=== PATIENT | female | born 1955 | race Caucasian/White ===

== ENCOUNTER → 2017-06-26 | Outpatient (CLI) | payer BC ==
--- NOTE | 2017-06-27 05:39 | CT ---
EXAMINATION TYPE: CT chest wo con DATE OF EXAM: 06/26/2017 COMPARISON: Chest CT July 23, 2016. Older CT December 04, 2015. HISTORY: Follow up nodule and shortness of breath. CT DLP: 202.5 mGycm. Automated Exposure Control for Dose Reduction was Utilized. TECHNIQUE: CT scan of the thorax is performed without IV contrast. FINDINGS: LUNGS: A scarlike opacity measuring 7 x 4 mm subpleural level right lower lobe on axial image 44 is n ot significantly changed from December 04, 2015 and presumed postinflammatory in etiology. No new peng picious greater than 6 mm parenchymal nodule or mass is present. There is no pleural effusion or pneu mothorax seen bilaterally. The tracheobronchial tree is patent. MEDIASTINUM: Lack of IV contrast is noted to limit evaluation for mediastinal and especially hilar ad enopathy. There are no definitive greater than 1 cm hilar or mediastinal lymph nodes. No cardiomega ly or pericardial effusion is seen. Coronary artery calcification is redemonstrated in the LAD distri bution which is noted marker for coronary artery disease. OTHER: There is moderate multilevel spurring and disc space narrowing with vacuum disc phenomenon thr oughout the thoracic spine. Focal calcified plaque at right renal artery origin is redemonstrated. IMPRESSION: Stable 7 x 4 mm subpleural scarlike opacity right lower lobe presumed postinflammatory. N o new suspicious nodules or adenopathy. No acute pulmonary process is evident. No significant new fin ding is observed.
== END | disposition home or self-care (01) ==
LOC: RADCTMAIN 19:27
PROVIDERS: ATTEND Internal Medicine Pulmonary Disease
DX: R91.8 Other nonspecific abnormal finding of lung field (principal); R06.02 Shortness of breath; R05 Cough
CPT/HCPCS: 71250

== ENCOUNTER → 2017-07-01 | Outpatient (CLI) | payer BC ==
--- NOTE | 2017-07-03 07:01 | MM ---
Reason for exam: screening (asymptomatic). Last mammogram was performed 1 year and 3 months ago. History: Patient is postmenopausal. Family history of breast cancer in paternal grandmother. Physical Findings: A clinical breast exam by your physician is recommended on an annual basis and results should be correlated with mammographic findings. MG 3D Screening Mammo W/Cad Bilateral CC and MLO view(s) were taken. Prior study comparison: April 03, 2016, bilateral MG screening mammo w CAD. March 08, 2015, bilateral MG screening mammo w CAD. January 26, 2014, bilateral digital screening mammo w/CAD. The breast tissue is heterogeneously dense. This may lower the sensitivity of mammography. Asymmetric breast tissue, left breast stable. There is chronic nodularity in the right breast. There is no discrete abnormality. ASSESSMENT: Benign, BI-RAD 2 RECOMMENDATION: Routine screening mammogram of both breasts in 1 year.
== END | disposition home or self-care (01) ==
LOC: RADMAMWWP 09:07
PROVIDERS: ATTEND Obstetrics & Gynecology
DX: Z12.31 Encounter for screening mammogram for malignant neoplasm of breast (principal); Z80.3 Family history of malignant neoplasm of breast
CPT/HCPCS: 77063; G0202

== ENCOUNTER → 2018-07-14 | Outpatient (CLI) | payer BC ==
--- NOTE | 2018-07-14 13:51 | MM ---
Reason for exam: screening (asymptomatic). Last mammogram was performed 1 year ago. History: Patient is postmenopausal. Family history of breast cancer in paternal grandmother. Physical Findings: A clinical breast exam by your physician is recommended on an annual basis and results should be correlated with mammographic findings. MG 3D Screening Mammo W/Cad Bilateral CC and MLO view(s) were taken. Prior study comparison: July 01, 2017, bilateral MG 3d screening mammo w/cad. April 03, 2016, bilateral MG screening mammo w CAD. The breast tissue is heterogeneously dense. This may lower the sensitivity of mammography. There is chronic nodularity in the right breast. There is no discrete abnormality. ASSESSMENT: Negative, BI-RAD 1 RECOMMENDATION: Routine screening mammogram of both breasts in 1 year.
== END | disposition home or self-care (01) ==
LOC: RADMAMWWP 09:45
PROVIDERS: ATTEND Obstetrics & Gynecology
DX: Z12.31 Encounter for screening mammogram for malignant neoplasm of breast (principal); Z80.3 Family history of malignant neoplasm of breast
CPT/HCPCS: 77063; 77067

== ENCOUNTER 2018-07-25 19:58 | Emergency (ER) | payer BC ==
[2018-07-25] MEDS ORDERED: LORazepam 2 MG/ML INJ IM STA (21:06)
[2018-07-25] MEDS ORDERED: ZIPRASIDONE 20 MG VIAL IM STA (21:13)
--- NOTE | 2018-07-25 21:22 | ED ---
General Adult HPI <Nik Cruz - Last Filed: 07/26/18 09:01> - General Source: patient, EMS, RN notes reviewed Mode of arrival: ambulatory Limitations: physical limitation <Teo Nolasco - Last Filed: 07/26/18 17:14> - General Chief complaint: Alcohol Stated complaint: ETOH Time Seen by Provider: 07/25/18 20:29 - History of Present Illness Initial comments: 62-year-old female presents to the emergency department for a chief complaint of alcohol intoxication. Patient currently a poor historian due to agitation. Patient was brought in by EMS. Apparently according to the EMS patient fell 3 times, once in the bedroom and twice in the kitchen. Patient did not lose consciousness and was apparently screaming at the the whole time. Patient denies drinking but does appear clinically intoxicated. Patient states she has a history of bipolar disorder but recently stopped taking her medications. Patient denies taking blood thinners. Patient denies suicidal or homicidal thoughts. Patient has no other complaints at this time including shortness of breath, chest pain, abdominal pain, nausea or vomiting, headache, or visual changes. (Teo Nolasco) - Related Data Home Medications Medication Instructions Recorded Confirmed ARIPiprazole [Abilify] 2 mg PO DAILY 07/25/18 07/25/18 Naltrexone HCl [Revia] 50 mg PO BID 07/25/18 07/25/18 lamoTRIgine [LaMICtal] 25 mg PO DAILY 07/25/18 07/25/18 Allergies Allergy/AdvReac Type Severity Reaction Status Date / Time celecoxib [From Celebrex] Allergy Unknown Verified 07/25/18 20:23 rifampin Allergy Rash/Hives Verified 07/25/18 20:23 Sulfa (Sulfonamide Allergy Unknown Verified 07/25/18 20:23 Antibiotics) steroids Allergy Skin Uncoded 07/25/18 20:23 Outbreak Review of Systems ROS Other: All systems not noted in ROS Statement are negative. <Nik Cruz - Last Filed: 07/26/18 09:01> ROS Other: All systems not noted in ROS Statement are negative. <Teo Nolasco - Last Filed: 07/26/18 17:14> ROS Statement: Those systems with pertinent positive or pertinent negative responses have been documented in the HPI. Past Medical History Past Medical History: Hypertension Additional Past Medical History / Comment(s): Insomnia History of Any Multi-Drug Resistant Organisms: None Reported Past Surgical History: Joint Replacement Past Psychological History: Bipolar Smoking Status: Never smoker Past Alcohol Use History: Abuse, Daily, Heavy Past Drug Use History: None Reported <Teo Nolasco - Last Filed: 07/26/18 17:14> General Exam Limitations: physical limitation General appearance: anxious, other (aggressive to staff, agitated) Head exam: Present: atraumatic, normocephalic, normal inspection Eye exam: Present: normal appearance, PERRL, EOMI, other (erythema noted below left eye). Absent: scleral icterus, conjunctival injection ENT exam: Present: normal exam, mucous membranes moist Neck exam: Present: normal inspection, full ROM. Absent: tenderness, meningismus, lymphadenopathy Respiratory exam: Present: normal lung sounds bilaterally. Absent: respiratory distress, wheezes, rales, rhonchi, stridor Cardiovascular Exam: Present: regular rate, normal rhythm, normal heart sounds. Absent: systolic murmur, diastolic murmur, rubs, gallop, clicks GI/Abdominal exam: Present: soft, normal bowel sounds. Absent: distended, tenderness, guarding, rebound, rigid Neurological exam: Present: alert, CN II-XII intact Psychiatric exam: Present: agitated (agitated, aggressive to staff, punching at staff). Absent: homicidal ideation, suicidal ideation <Teo Nolasco P - Last Filed: 07/26/18 17:14> Course <Nik Cruz - Last Filed: 07/26/18 09:01> <Teo Nolasco P - Last Filed: 07/26/18 17:14> Vital Signs 07/25/18 07/25/18 07/26/18 20:13 23:45 04:14 Temperature 98.2 F 98.7 F Pulse Rate 78 89 83 Respiratory 20 15 16 Rate Blood Pressure 172/64 127/76 147/81 O2 Sat by Pulse 98 100 96 Oximetry 07/26/18 07/26/18 06:39 07:30 Temperature 98.8 F Pulse Rate 87 Respiratory 16 18 Rate Blood Pressure 148/96 O2 Sat by Pulse 99 Oximetry - Reevaluation(s) Reevaluation #1: 07/25/18 20:50 Face to face performed after restraints applied. (Teo Nolasco) Medical Decision Making - Lab Data Result diagrams: 07/25/18 21:40 07/25/18 21:40 <Nik Cruz - Last Filed: 07/26/18 09:01> - Lab Data Result diagrams: 07/25/18 21:40 07/25/18 21:40 <Teo Nolasco - Last Filed: 07/26/18 17:14> - Medical Decision Making EPS evaluated the patient and determined the patient could be discharged home ( Nik Cruz) 62-year-old female presents to the emergency department for a chief complaint of alcohol intoxication. Patient is very agitated. She is punching at staff members and is endangering those around her. Patient is also endangering herself at this time. Hard restraints were ordered for this. Patient was also given Ativan and Geodon. Patient was reevaluated multiple times and did eventually calm down. Restraints were removed. On reevaluation she is currently sleeping. On exam patient has erythema noted below the left eye as well as abrasion to the chin. Patient is unable to explain how the trauma occurred but apparently she did fall 3 times at home. CAT scan of the brain was ordered. CT is negative of the brain and cervical spine for any fractures or intracranial hemorrhage. Patient currently resting comfortably pending EPS evaluation (Teo Nolasco) - Lab Data Lab Results 07/25/18 07/25/18 07/26/18 Range/Units 21:40 21:40 04:45 WBC 9.0 (3.8-10.6) k/uL RBC 4.46 (3.80-5.40) m/uL Hgb 14.2 (11.4-16.0) gm/dL Hct 41.3 (34.0-46.0) % MCV 92.6 (80.0-100.0) fL MCH 31.9 (25.0-35.0) pg MCHC 34.5 (31.0-37.0) g/dL RDW 13.2 (11.5-15.5) % Plt Count 272 (150-450) k/uL Neutrophils % 62 % Lymphocytes % 32 % Monocytes % 4 % Eosinophils % 1 % Basophils % 1 % Neutrophils # 5.5 (1.3-7.7) k/uL Lymphocytes # 2.9 (1.0-4.8) k/uL Monocytes # 0.3 (0-1.0) k/uL Eosinophils # 0.1 (0-0.7) k/uL Basophils # 0.0 (0-0.2) k/uL Sodium 145 (137-145) mmol/L Potassium 4.2 (3.5-5.1) mmol/L Chloride 109 H (98-107) mmol/L Carbon Dioxide 25 (22-30) mmol/L Anion Gap 11 mmol/L BUN 17 (7-17) mg/dL Creatinine 0.77 (0.52-1.04) mg/dL Est GFR (CKD-EPI)AfAm >90 (>60 ml/min/1.73 sqM) Est GFR (CKD-EPI)NonAf 84 (>60 ml/min/1.73 sqM) Glucose 92 (74-99) mg/dL Calcium 9.4 (8.4-10.2) mg/dL Magnesium 2.3 (1.6-2.3) mg/dL Total Bilirubin 0.5 (0.2-1.3) mg/dL AST 33 (14-36) U/L ALT 22 (9-52) U/L Alkaline Phosphatase 83 (38-126) U/L Total Protein 7.2 (6.3-8.2) g/dL Albumin 4.3 (3.5-5.0) g/dL Urine Opiates Screen Not Detected (NotDetected) Ur Oxycodone Screen Not Detected (NotDetected) Urine Methadone Screen Not Detected (NotDetected) Ur Propoxyphene Screen Not Detected (NotDetected) Ur Barbiturates Screen Not Detected (NotDetected) U Tricyclic Antidepress Not Detected (NotDetected) Ur Phencyclidine Scrn Not Detected (NotDetected) Ur Amphetamines Screen Not Detected (NotDetected) U Methamphetamines Scrn Not Detected (NotDetected) U Benzodiazepines Scrn Detected H (NotDetected) Urine Cocaine Screen Not Detected (NotDetected) U Marijuana (THC) Screen Detected H (NotDetected) Serum Alcohol 287 H* mg/dL Disposition Is patient prescribed a controlled substance at d/c from ED?: No Time of Disposition: 09:02 <Nik Cruz - Last Filed: 07/26/18 09:01> Is patient prescribed a controlled substance at d/c from ED?: No <Teo Nolasco - Last Filed: 07/26/18 17:14> Clinical Impression: Alcoholic intoxication, Situational depression Disposition: HOME SELF-CARE Instructions: Depression (ED), Alcohol Intoxication (ED) Referrals: Syd Barnes MD [Primary Care Provider] - 1-2 days
[2018-07-25 21:57] LABS: Basophils % (A) 1 %; Eosinophils # (A) 0.1 k/uL (0-0.7); Eosinophils % (A) 1 %; HCT 41.3 % (34.0-46.0); HGB 14.2 gm/dL (11.4-16.0); Lymphocytes # (A) 2.9 k/uL (1.0-4.8); Lymphocytes % (A) 32 %; MCH 31.9 pg (25.0-35.0); MCHC 34.5 g/dL (31.0-37.0); MCV 92.6 fL (80.0-100.0); Mean Platelet Volume 6.5; Monocytes # (A) 0.3 k/uL (0-1.0); Monocytes % (A) 4 %; Neutrophils # (A) 5.5 k/uL (1.3-7.7); Neutrophils % (A) 62 %; Platelet Count 272 k/uL (150-450); RBC 4.46 m/uL (3.80-5.40); RDW 13.2 % (11.5-15.5)
[2018-07-25 22:19] LABS: ALT 22 U/L (9-52); AST 33 U/L (14-36); Albumin 4.3 g/dL (3.5-5.0); Alkaline Phosphatase 83 U/L (38-126); Anion Gap 11 mmol/L; Blood Urea Nitrogen 17 mg/dL (7-17); Calcium 9.4 mg/dL (8.4-10.2); Carbon Dioxide 25 mmol/L (22-30); Chloride 109 mmol/L (98-107); Glucose 92 mg/dL (74-99); Magnesium 2.3 mg/dL (1.6-2.3); Potassium 4.2 mmol/L (3.5-5.1); Sodium 145 mmol/L (137-145); Total Bilirubin 0.5 mg/dL (0.2-1.3); Total Protein 7.2 g/dL (6.3-8.2)
[2018-07-25 22:38] LABS: Alcohol 287 mg/dL
--- NOTE | 2018-07-26 00:34 | CT ---
EXAMINATION TYPE: CT brain dav castillo DATE OF EXAM: 07/26/2018 COMPARISON: 12/04/2015 HISTORY: AMS CT DLP: 1511.10 mGycm Automated exposure control for dose reduction was used. TECHNIQUE: CT scan of the head and cervical spine are performed without contrast. FINDINGS: Ventricles of normal size. There is no mass effect nor midline shift. There is no sign of intracranial hemorrhage. The calvarium is intact. Cervical vertebra have normal alignment. There is narrowing of disc spaces from C2 to C7 with spurrin g of the endplates. Posterior elements are intact. Skull base is intact. There is no evidence of cerv ical spine fracture. IMPRESSION: Negative CT scan of the brain. Spondylotic changes at multiple levels in the cervical spine. No fracture. No sign of any significant spinal stenosis.
[2018-07-26 05:25] LABS: Amphetamine Screen,Urine Not Detected (NotDetected); Benzodiazepines Screen,Urine Detected (NotDetected); Cocaine Screen,Urine Not Detected (NotDetected); Opiate Screen,Urine Not Detected (NotDetected); Phencyclidine Screen,Urine Not Detected (NotDetected)
[2018-07-26 05:26] LABS: Barbiturate Screen,Urine Not Detected (NotDetected); Methadone Screen, Urine Not Detected (NotDetected); Oxycodone Screen, Urine Not Detected (NotDetected); Tricyclic Antidepressant,Urine Not Detected (NotDetected); Urn Cannabinoid Scrn Detected (NotDetected)
[2018-07-26] MEDS ORDERED: DIPH,PERTUS(ACELL)TETVAC-LF 0.5 ML VIAL IM ONE (06:21)
[2018-07-26 06:40] VITALS: BP 148/96; PULSE 87; TEMP 98.8
[2018-07-26 07:50] VITALS: RESP 18
== END 2018-07-26 09:05 | disposition home or self-care (01) ==
LOC: EC 19:58
DX: F43.21 Adjustment disorder with depressed mood (principal); F10.129 Alcohol abuse with intoxication, unspecified; S00.81XA Abrasion of other part of head, initial encounter; L53.9 Erythematous condition, unspecified; R45.1 Restlessness and agitation; F31.9 Bipolar disorder, unspecified; Z88.1 Allergy status to other antibiotic agents; Z88.2 Allergy status to sulfonamides; Z88.6 Allergy status to analgesic agent; Z88.8 Allergy status to other drugs, medicaments and biological substances; Z79.899 Other long term (current) drug therapy; Z23 Encounter for immunization; W19.XXXA Unspecified fall, initial encounter; Y92.000 Kitchen of unspecified non-institutional (private) residence as the place of occurrence of the external cause; Y92.003 Bedroom of unspecified non-institutional (private) residence as the place of occurrence of the external cause
CPT/HCPCS: 82075; 36415; 80053; 83735; 85025; 80306; 80320; 72125; 70450; 90715; 99285; 96372 ×2; 90471; J2060; J3486

== ENCOUNTER → 2019-09-18 | Outpatient (CLI) | payer BC ==
--- NOTE | 2019-09-18 09:23 | MM ---
Reason for exam: screening (asymptomatic). Last mammogram was performed 1 year and 2 months ago. History: Patient is postmenopausal. Family history of breast cancer in paternal grandmother. Took hormonal contraceptives for 6 months. Physical Findings: A clinical breast exam by your physician is recommended on an annual basis and results should be correlated with mammographic findings. MG 3D Screening Mammo W/Cad Bilateral CC and MLO view(s) were taken. Prior study comparison: July 14, 2018, bilateral MG 3d screening mammo w/cad. July 01, 2017, bilateral MG 3d screening mammo w/cad. The breast tissue is heterogeneously dense. This may lower the sensitivity of mammography. There is chronic nodularity in the right breast. There is no discrete abnormality. ASSESSMENT: Negative, BI-RAD 1 RECOMMENDATION: Routine screening mammogram of both breasts in 1 year.
== END | disposition home or self-care (01) ==
LOC: RADMAMWWP 08:10
PROVIDERS: ATTEND Obstetrics & Gynecology
DX: Z12.31 Encounter for screening mammogram for malignant neoplasm of breast (principal); Z80.3 Family history of malignant neoplasm of breast
CPT/HCPCS: 77063; 77067

== ENCOUNTER 2020-04-25 09:51 | Observation (INO) | payer BC ==
[2020-04-25] MEDS ORDERED: NITROGLYCERIN OINT 1 INCH/GM PACKET TOPICAL STA (10:25)
[2020-04-25] MEDS ORDERED: ASPIRIN 81 MG PO STA (10:25)
--- NOTE | 2020-04-25 10:34 | ED ---
General Adult HPI - General Chief complaint: Chest Pain Stated complaint: High BP Time Seen by Provider: 04/25/20 09:55 Source: patient, RN notes reviewed, old records reviewed Mode of arrival: ambulatory Limitations: no limitations - History of Present Illness Initial comments: This is a 64-year-old female presents to the emergency department complaining of chest pain for one week. Patient states the pain is constant. Patient states if she lifts her arm up the pain does get a little worse. Patient denies any difficulty breathing shortest breath per patient denies any exertion making the pain worse. Patient states she is quite active so she has done quite a bit of exertion and it does not hurt worse. Patient denies any nausea vomiting. Eva mcdonald denies any recent fever chills or cough per patient states she used to be a smoker but quit leg 5 years ago. Patient denies any swelling to her legs or calf tenderness. - Related Data Home Medications Medication Instructions Recorded Confirmed ARIPiprazole [Abilify] 1 mg PO HS 07/25/18 04/25/20 Cyanocobalamin [Vitamin B-12] 500 mcg PO DAILY 04/25/20 04/25/20 Famotidine [Pepcid] 20 mg PO BID 04/25/20 04/25/20 Losartan Potassium 100 mg PO DAILY 04/25/20 04/25/20 Venlafaxine HCl ER [Effexor Xr] 75 mg PO DAILY 04/25/20 04/25/20 Vit C/E/Zn/Coppr/Lutein/Zeaxan 1 cap PO DAILY 04/25/20 04/25/20 [Preservision Areds 2 Softgel] traZODone HCL 100 mg PO HS 04/25/20 04/25/20 Allergies Allergy/AdvReac Type Severity Reaction Status Date / Time celecoxib [From Celebrex] Allergy Unknown Verified 04/25/20 11:25 rifampin Allergy Rash/Hives Verified 04/25/20 11:25 Sulfa (Sulfonamide Allergy Unknown Verified 04/25/20 11:25 Antibiotics) steroids Allergy Skin Uncoded 04/25/20 09:59 Outbreak Review of Systems ROS Statement: Those systems with pertinent positive or pertinent negative responses have been documented in the HPI. ROS Other: All systems not noted in ROS Statement are negative. Past Medical History Past Medical History: Hypertension Additional Past Medical History / Comment(s): Insomnia History of Any Multi-Drug Resistant Organisms: None Reported Past Surgical History: Joint Replacement Additional Past Surgical History / Comment(s): left hip replacement Past Psychological History: Bipolar Smoking Status: Former smoker Past Alcohol Use History: Abuse, Daily, Heavy Past Drug Use History: None Reported General Exam - General Exam Comments Initial Comments: GENERAL: Patient is well-developed and well-nourished. Patient is nontoxic and well- hydrated and is in mild distress. ENT: Neck is soft and supple. No significant lymphadenopathy is noted. Oropharynx is clear. Moist mucous membranes. Neck has full range of motion without eliciting any pain. EYES: The sclera were anicteric and conjunctiva were pink and moist. Extraocular movements were intact and pupils were equal round and reactive to light. Eyelids were unremarkable. PULMONARY: Unlabored respirations. Good breath sounds bilaterally. No audible rales rhonchi or wheezing was noted. CARDIOVASCULAR: There is a regular rate and rhythm without any murmurs gallops or rubs. ABDOMEN: Soft and nontender with normal bowel sounds. SKIN: Skin is clear with no lesions or rashes and otherwise unremarkable. NEUROLOGIC: Patient is alert and oriented x3. Cranial nerves II through XII are grossly intact. Motor and sensory are also intact. Normal speech, volume and content. Symmetrical smile. MUSCULOSKELETAL: Normal extremities with adequate strength and full range of motion. LYMPHATICS: No significant lymphadenopathy is noted PSYCHIATRIC: Normal psychiatric evaluation. Limitations: no limitations Course Vital Signs 04/25/20 04/25/20 04/25/20 09:55 11:25 13:00 Temperature 98.3 F Pulse Rate 95 79 75 Respiratory 18 16 16 Rate Blood Pressure 157/99 148/95 140/96 O2 Sat by Pulse 98 100 Oximetry Medical Decision Making - Medical Decision Making EKG shows normal sinus rhythm at 70 bpm LA interval 228 QRS is 94 QT interval 412 QTC is 444. Patient's EKG shows no ST segment elevation or depression. Chest x-ray showed no acute normalities. After the Nitropaste was placed on the patient she stated that was the first time in a week her pain had gone away completely. Because the patient's unstable angina picture I started the patient on heparin. The physician about admitting patient admitted the patient wrote admitting orders I consult cardiology. Continue heparin has been Nitropaste on the floor. I spoke with - Lab Data Result diagrams: 04/25/20 10:17 04/25/20 10:17 Lab Results 04/25/20 04/25/20 04/25/20 Range/Units 10:17 10:17 10:17 WBC 5.6 (3.8-10.6) k/uL RBC 4.35 (3.80-5.40) m/uL Hgb 13.3 (11.4-16.0) gm/dL Hct 42.1 (34.0-46.0) % MCV 96.8 (80.0-100.0) fL MCH 30.6 (25.0-35.0) pg MCHC 31.6 (31.0-37.0) g/dL RDW 12.9 (11.5-15.5) % Plt Count 246 (150-450) k/uL Neutrophils % 61 % Lymphocytes % 27 % Monocytes % 8 % Eosinophils % 1 % Basophils % 1 % Neutrophils # 3.5 (1.3-7.7) k/uL Lymphocytes # 1.5 (1.0-4.8) k/uL Monocytes # 0.4 (0-1.0) k/uL Eosinophils # 0.1 (0-0.7) k/uL Basophils # 0.1 (0-0.2) k/uL PT 9.6 (9.0-12.0) sec INR 0.9 (<1.2) APTT 24.7 (22.0-30.0) sec D-Dimer (<0.60) mg/L FEU Sodium 135 L (137-145) mmol/L Potassium 4.4 (3.5-5.1) mmol/L Chloride 105 (98-107) mmol/L Carbon Dioxide 23 (22-30) mmol/L Anion Gap 7 mmol/L BUN 16 (7-17) mg/dL Creatinine 0.86 (0.52-1.04) mg/dL Est GFR (CKD-EPI)AfAm 84 (>60 ml/min/1.73 sqM) Est GFR (CKD-EPI)NonAf 73 (>60 ml/min/1.73 sqM) Glucose 109 H (74-99) mg/dL Calcium 9.7 (8.4-10.2) mg/dL Magnesium 2.2 (1.6-2.3) mg/dL Total Bilirubin 0.7 (0.2-1.3) mg/dL AST 34 (14-36) U/L ALT 25 (4-34) U/L Alkaline Phosphatase 106 (38-126) U/L Troponin I (0.000-0.034) ng/mL Total Protein 7.0 (6.3-8.2) g/dL Albumin 4.5 (3.5-5.0) g/dL 04/25/20 04/25/20 Range/Units 10:17 10:17 WBC (3.8-10.6) k/uL RBC (3.80-5.40) m/uL Hgb (11.4-16.0) gm/dL Hct (34.0-46.0) % MCV (80.0-100.0) fL MCH (25.0-35.0) pg MCHC (31.0-37.0) g/dL RDW (11.5-15.5) % Plt Count (150-450) k/uL Neutrophils % % Lymphocytes % % Monocytes % % Eosinophils % % Basophils % % Neutrophils # (1.3-7.7) k/uL Lymphocytes # (1.0-4.8) k/uL Monocytes # (0-1.0) k/uL Eosinophils # (0-0.7) k/uL Basophils # (0-0.2) k/uL PT (9.0-12.0) sec INR (<1.2) APTT (22.0-30.0) sec D-Dimer 0.65 H (<0.60) mg/L FEU Sodium (137-145) mmol/L Potassium (3.5-5.1) mmol/L Chloride (98-107) mmol/L Carbon Dioxide (22-30) mmol/L Anion Gap mmol/L BUN (7-17) mg/dL Creatinine (0.52-1.04) mg/dL Est GFR (CKD-EPI)AfAm (>60 ml/min/1.73 sqM) Est GFR (CKD-EPI)NonAf (>60 ml/min/1.73 sqM) Glucose (74-99) mg/dL Calcium (8.4-10.2) mg/dL Magnesium (1.6-2.3) mg/dL Total Bilirubin (0.2-1.3) mg/dL AST (14-36) U/L ALT (4-34) U/L Alkaline Phosphatase (38-126) U/L Troponin I <0.012 (0.000-0.034) ng/mL Total Protein (6.3-8.2) g/dL Albumin (3.5-5.0) g/dL Critical Care Time Critical Care Time: Yes Total Critical Care Time: 35 Disposition Clinical Impression: Unstable angina pectoris Disposition: ADMITTED IP TO THIS HOSP Referrals: Syd Barnes MD [Primary Care Provider] - 1-2 days Time of Disposition: 13:41
[2020-04-25 11:09] LABS: Basophils # (A) 0.1 k/uL (0-0.2); Basophils % (A) 1 %; Eosinophils # (A) 0.1 k/uL (0-0.7); Eosinophils % (A) 1 %; HCT 42.1 % (34.0-46.0); HGB 13.3 gm/dL (11.4-16.0); Lymphocytes # (A) 1.5 k/uL (1.0-4.8); Lymphocytes % (A) 27 %; MCH 30.6 pg (25.0-35.0); MCHC 31.6 g/dL (31.0-37.0); MCV 96.8 fL (80.0-100.0); Mean Platelet Volume 7.5; Monocytes # (A) 0.4 k/uL (0-1.0); Monocytes % (A) 8 %; Neutrophils # (A) 3.5 k/uL (1.3-7.7); Neutrophils % (A) 61 %; Platelet Count 246 k/uL (150-450); RBC 4.35 m/uL (3.80-5.40); RDW 12.9 % (11.5-15.5); WBC 5.6 k/uL (3.8-10.6)
[2020-04-25 11:10] LABS: Albumin 4.5 g/dL (3.5-5.0); Calcium 9.7 mg/dL (8.4-10.2); Magnesium 2.2 mg/dL (1.6-2.3); Potassium 4.4 mmol/L (3.5-5.1); Total Bilirubin 0.7 mg/dL (0.2-1.3)
--- NOTE | 2020-04-25 11:13 | XR ---
EXAMINATION TYPE: XR chest 2V DATE OF EXAM: 04/25/2020 COMPARISON: 11/1415 HISTORY: Shortness of breath TECHNIQUE: Frontal and lateral views of the chest are obtained. FINDINGS: Scattered senescent parenchymal changes noted. Hyperinflation compatible with COPD. No evidence for infiltrate. No evidence for atelectasis. Heart size is stable. Mediastinal structures are stable and grossly unremarkable. No evidence for hilar prominence. Degenerative changes dorsal spine. IMPRESSION: 1. No evidence for acute pulmonary disease.
[2020-04-25 11:19] LABS: INR 0.9 (<1.2); Partial Thromboplastin Time 24.7 sec (22.0-30.0); Prothrombin Time 9.6 sec (9.0-12.0)
--- NOTE | 2020-04-25 13:04 | CT ---
EXAMINATION TYPE: CT chest angio for PE DATE OF EXAM: 04/25/2020 COMPARISON: Chest x-ray 04/25/2020 HISTORY: High blood pressure and elevated d-dimer CT DLP: 248.1 mGycm Automated exposure control for dose reduction was used. CONTRAST: CT Chest for pulmonary embolism performed with with IV Contrast, patient injected with 100 mL of Isov ue 370. FINDINGS: LUNGS: The lungs are grossly clear, there is no concerning parenchymal mass or nodule identified. T here is no pleural effusion or pneumothorax seen. The tracheobronchial tree is patent. MEDIASTINUM: There is satisfactory enhancement of the pulmonary artery and its branches, there is no CT evidence for pulmonary embolism. There are no greater than 1 cm hilar or mediastinal lymph nodes. No pericardial effusion is seen. AORTA: No additional significant abnormality is seen. OTHER: Surgical clips in the upper abdomen along the pancreas suspected. Thoracic spondylosis is pre sent. IMPRESSION: No evident pulmonary embolus.
[2020-04-25] MEDS ORDERED: HEPARIN SODIUM,PORCINE 5,000 UNIT/ML 1 ML VIAL IV ONE (13:40)
[2020-04-25] MEDS ORDERED: HEPARIN SOD,PORK IN 0.45% NACL 25,000 UNIT in 0.45% NACL 1 250ML.BAG IV SCH (13:45)
[2020-04-25] MEDS ORDERED: NITROGLYCERIN SL TABS 0.4 MG TAB SUBLINGUAL PRN (13:49)
[2020-04-25] MEDS: NITROGLYCERIN OINT 1 INCH/GM PACKET TOPICAL SCH (17:00)
[2020-04-25] MEDS ORDERED: DIAZEPAM 5 MG TAB PO PRN (18:13)
[2020-04-25] MEDS ORDERED: ACETAMINOPHEN TAB 325 MG TAB PO PRN (18:24)
[2020-04-25] MEDS ORDERED: traZODone HCL 100 MG TAB PO SCH (21:00)
[2020-04-25] MEDS ORDERED: ARIPiprazole 2 MG TAB PO SCH (21:00)
[2020-04-25] MEDS: FAMOTIDINE 20 MG TAB PO SCH (22:22)
--- NOTE | 2020-04-25 22:54 | P.HPIM ---
History of Present Illness H&P Date: 04/25/20 Chief Complaint: Unstable angina, recurrent chest pain, hypertension and hyp erlipidemia 63-year-old female one of Dr. Barnes's patient with past medical history of hypertension hyperlipidemia who had chronic arthritis and chronic depression who developed to have significant midsternal chest pain on and off for the last few days over a week ago she developed to have significantly elevated blood pressure running over 160 systolic over 100 diastolic on regular basis and developed to have exertional chest pain with worsening symptoms sometime with minimum exertion radiating toward her left arm as a midsternal chest discomfort with numbness in the left arm associated with mild palpitation cold sweat and nausea feeling. Patient symptoms become much worse today ended up coming to the emergency department at [facility] where was seen and evaluated her d-dimer was elevated patient ended up going for CTA came back negative for wrap PE, CK with troponin came back negative EKG did not show any significant change at the time. Patient had respond to nitro paste with significant relief of her chest pain and discomfort with the blood pressure become under better control afterward. Patient was started on heparin drip nitro patch and admitted to the hospital shortly after with the above problem. Review of Systems CONSTITUTIONAL: Well-developed no acute respiratory distress. EYES: No icterus sclerae, no conjunctivitis. EARS, NOSE, MOUTH, THROAT, and FACE: No sore throat, lymphadenopathy, carotid bruits or deformity. RESPIRATORY: Positive chest pain with shortness of breath. CARDIOVASCULAR: Positive chest pain with angina relieved with nitroglycerin possible orthopnea positive palpitation. GASTROINTESTINAL: No Abd pain, Nausea or vomiting, no Diarrhea or constipation, No GI Bleed, no distention or masses. GENITOURINARY: Negative for Hematuria or UTI, no kidney stones. INTEGUMENT/BREAST: Negative for any muscular injury with mild osteoarthritis.. HEMATOLOGIC/LYMPHATIC: Negative for bleed or purpura. MUSCULOSKELTAL: Negative for Myalgia or arthralgia. NEURLOGICAL: No LOC, Sz or syncope, blurred vision dizziness or abnormality.. BEHAVIORAL/PSYCH: Negative. ENDOCRINE: Negative. Past Medical History Past Medical History: Hypertension Additional Past Medical History / Comment(s): Insomnia History of Any Multi-Drug Resistant Organisms: None Reported Past Surgical History: Joint Replacement Additional Past Surgical History / Comment(s): left hip replacement Past Psychological History: Bipolar Smoking Status: Former smoker Past Alcohol Use History: Abuse, Daily, Heavy Past Drug Use History: None Reported Medications and Allergies Home Medications Medication Instructions Recorded Confirmed Type ARIPiprazole [Abilify] 1 mg PO HS 07/25/18 04/25/20 History Cyanocobalamin [Vitamin B-12] 500 mcg PO DAILY 04/25/20 04/25/20 History Diazepam [Valium] 5 mg PO TID PRN 04/25/20 04/25/20 History Famotidine [Pepcid] 20 mg PO BID 04/25/20 04/25/20 History Losartan Potassium 100 mg PO DAILY 04/25/20 04/25/20 History Venlafaxine HCl ER [Effexor Xr] 75 mg PO DAILY 04/25/20 04/25/20 History Vit C/E/Zn/Coppr/Lutein/Zeaxan 1 cap PO DAILY 04/25/20 04/25/20 History [Preservision Areds 2 Softgel] traZODone HCL 100 mg PO HS 04/25/20 04/25/20 History Allergies Allergy/AdvReac Type Severity Reaction Status Date / Time celecoxib [From Celebrex] Allergy Unknown Verified 04/25/20 11:25 rifampin Allergy Rash/Hives Verified 04/25/20 11:25 Sulfa (Sulfonamide Allergy Unknown Verified 04/25/20 11:25 Antibiotics) steroids Allergy Skin Uncoded 04/25/20 09:59 Outbreak Physical Exam Vitals: Vital Signs Temp Pulse Pulse Resp BP BP Pulse Ox 04/25/20 15:38 78 16 131/97 96 04/25/20 14:27 67 18 134/93 98 04/25/20 14:14 97.8 F 70 14 160/87 99 04/25/20 13:00 75 16 140/96 100 04/25/20 11:25 79 16 148/95 04/25/20 09:55 98.3 F 95 18 157/99 98 Intake and Output 04/25/20 04/25/20 04/25/20 06:59 14:59 22:59 Other: Voiding Method Toilet Weight 65.771 kg General Appearance: Alert, cooperative, no distress, appears stated age. Neck HEENT: Supple, no lymphadenopathy, no thyroid enlargement, no carotid bruits. Lungs: Clear to auscultation without crackles or wheezes no rhonchi, no deformity. Chest Wall: Chest wall normal expansion with deep inspiration no tenderness and no deformity was found on exam, no costochondral pain or discomfort. Heart: Regular rate and rhythm, S1, S2 normal, no murmur, rub or gallop. Back: Symmetric, no curvature, ROM normal, no CVA tenderness. Abdomen: Soft, non-tender, bowel sounds active all four quadrants, no masses, no organomegaly. Extremities: Extremities normal, atraumatic, no cyanosis or edema. Pulses: 2+ and symmetric. Skin: Skin color, texture, tugor normal, no rashes or lesions. Neurologic: Alert oriented x3 cranial nerves II through XII intact, no motor deficit, no abnormal balance or gait. Results CBC & Chem 7: 04/25/20 10:17 04/25/20 10:17 Labs: Abnormal Lab Results - Last 24 Hours (Table) 04/25/20 04/25/20 04/25/20 Range/Units 10:17 10:17 20:16 APTT 58.3 H (22.0-30.0) sec D-Dimer 0.65 H (<0.60) mg/L FEU Sodium 135 L (137-145) mmol/L Glucose 109 H (74-99) mg/dL Thrombosis Risk Factor Assmnt - DVT/VTE Prophylaxis DVT/VTE Prophylaxis: Pharmacologic Prophylaxis ordered, Mechanical Prophylaxis ordered - Choose All That Apply Each Risk Factor Represents 2 Points: Age 61-74 years Thrombosis Risk Factor Assessment Total Risk Factor Score: 2 Thrombosis Risk Factor Assessment Level: Low Risk Assessment and Plan Assessment: 1 Unstable angina: Patient was started on heparin drip, nitro patient be hospitalized echocardiogram was order and patient might go for intervention either stress test or heart cath based on the results of her CK with troponin over the next 24 hours. 2 noncontrolled hypertension: Patient has been on losartan 100 mg daily Will add smaller dose of beta scotty if needed patient can be on amlodipine 5 mg twice a day for systolic above 160. 3 hyperlipidemia: On diet control make sure her low 100. 4 chronic bipolar disorders: Patient has been on Effexor, trazodone, Abilify continue medication. 5 chronic insomnia: Continue trazodone. 6 severe GERD: Patient has been on Pepcid 20 mg twice a day. 7 DVT prophylaxis: Continue heparin drip. CODE STATUS: Full code. Admit patient to observation status for 1-2 nights stay
[2020-04-26] MEDS: NITROGLYCERIN OINT 1 INCH/GM PACKET TOPICAL SCH ×2 (04:30→08:11)
[2020-04-26 05:00] VITALS: RESP 16
[2020-04-26 07:23] LABS: Cholesterol 237 mg/dL (<200); Triglycerides 61 mg/dL (<150)
[2020-04-26 07:31] LABS: LDL Cholesterol,Calculated 82 mg/dL (0-99)
[2020-04-26 07:35] LABS: HDL Cholesterol 143 mg/dL (40-60)
[2020-04-26] MEDS: FAMOTIDINE 20 MG TAB PO SCH (08:05)
[2020-04-26] MEDS ORDERED: METOPROLOL SUCCINATE (ER) 25 MG TAB.ER.24H PO SCH (09:00)
[2020-04-26] MEDS ORDERED: ASPIRIN 325 MG TAB PO SCH (09:00)
[2020-04-26] MEDS ORDERED: NON FORMULARY DRUG (Vit C/E/Zn/Coppr/Lutein/Zeaxan [Preservision Areds 2 Softgel] 1 CAP) PO SCH (09:00)
[2020-04-26] MEDS ORDERED: CYANOCOBALAMIN 500 MCG TAB PO SCH (09:00)
[2020-04-26] MEDS ORDERED: VENLAFAXINE HCL ER 75 MG CAP PO SCH (09:00)
[2020-04-26] MEDS ORDERED: LOSARTAN 50 MG TAB PO SCH (09:00)
[2020-04-26] MEDS ORDERED: DOBUTamine DRIP for NUC MED 500 MG in DEXTROSE/WATER 1 250ML.BAG IV ONE (09:20)
--- NOTE | 2020-04-26 10:03 | P.CRDCN ---
History of Present Illness History of present illness: HISTORY OF PRESENTING ILLNESS This is a pleasant 64-year-old female past medical history significant for hypertension, former nicotine dependence and chronic daily alcohol abuse. She follows in the office with Dr. Cummings. We have been asked to see in consultation for chest pain. She is seen and examined sitting up resting comfortably in bed in no acute distress. She states she has been experiencing a discomfort described as an achy sensation in the left precordial region for the previous one week that has been constant. The discomfort does radiate at times down the left arm. She feels as though the radiation is related to when she moves her arm or lifts her shoulder. There is no radiation through to the back, into the neck or the jaw. She denies associated shortness of breath, dizziness, palpitations, nausea, vomiting or diaphoresis. Her discomfort is not worsened are exacerbated by activity or exertion. She states she is quite physically active on a regular basis. In 2016 she underwent a cardiac evaluation prior to having hip surgery. At that time she had a Lexiscan stress test that was negative. A echocardiogram revealing normal LV systolic function. She is scheduled to have a stress test in the office with Dr. Dr. Cummings in July. She is also quite tearful at the time of my exam and states she is struggling with her who has recently been diagnosed with stage IV renal cancer. She has been checking her blood pressure regularly at home and her blood pressure fluctuates from 90/40-130/110. Blood pressure on arrival was 157/99 and 160/87. She has been started on Toprol 25 mg daily per the primary care team. She also mentions that for the last 1 year she has been experiencing pain along with numbness and tingling in her lower extremities. DIAGNOSTICS EKG reveals sinus mechanism heart rate of 70 with no acute ischemic changes. Chest xray negative for an acute cardiopulmonary process. CTA of the chest is negative for pulmonary embolism. The lungs are grossly clear. No abnormalities noted in the aorta. Laboratory reviewed, CBC unremarkable, d-dimer 0.65, cardiac enzymes negative 3, LDL 82, HDL 143, sodium 135, potassium 4.4, creatinine 0.86 and magnesium 2.2. Current cardiac medications include losartan 100 mg daily. REVIEW OF SYSTEMS At the time of my exam: CONSTITUTIONAL: Denies fever or chills. CARDIOVASCULAR: Complains of chest pain. Denies shortness of breath, orthopnea, PND or palpitations. RESPIRATORY: Denies cough. GASTROINTESTINAL: Denies abdominal pain, diarrhea, constipation, nausea or vomiting. MUSCULOSKELETAL: Denies myalgias. NEUROLOGIC: Denies numbness, tingling or weakness. ENDOCRINE: Denies fatigue, weight change, polydipsia or polyurina. GENITOURINARY: Denies burning, hematuria or urgency with micturation. HEMATOLOGIC: Denies history of anemia or bleeding. PHYSICAL EXAMINATION Blood pressure 137/94 heart rate 70 afebrile and maintaining oxygen saturation on room air. CONSTITUTIONAL: No apparent distress. HEENT: Head is normocephalic. Pupils are equal, round. Sclerae anicteric. Mucous membranes of the mouth are moist. No JVD. No carotid bruit. CHEST EXAMINATION: Lungs are clear to auscultation. No chest wall tenderness is noted on palpation or with deep breathing. HEART EXAMINATION: Regular rate and rhythm. S1, S2 heard. No murmurs, gallops or rub. ABDOMEN: Soft, nontender. Positive bowel sounds. EXTREMITIES: 2+ peripheral pulses, no lower extremity edema and no calf tenderness. NEUROLOGIC EXAMINATION: Patient is awake, alert and oriented x3. ASSESSMENT Chest pain, atypical for angina. An acute coronary event has been ruled out. Leg pain and tingling Hypertension Chronic daily alcohol abuse Former nicotine dependence PLAN An acute coronary event has been ruled out with no EKG evidence of ischemia and negative cardiac enzymes. Recommend proceeding with dobutamine stress echocardiogram to assess for stress- induced ischemia. Obtain 2-D echocardiogram and Doppler study to assess cardiac structure and function. Recommend complete alcohol cessation. Discussed further outpatient evaluation with [facility] and possible peripheral angiography to assess lower extremity pain, cramping and tingling given her significant history of tobacco use. If stress test is normal she can be discharged from a cardiac perspective to follow up with Dr. Cummings as an outpatient. Thank you kindly for this consultation. Nurse Practitioner note has been reviewed, I agree with a documented findings and plan of care. Patient was seen and examined. Past Medical History Past Medical History: Hypertension Additional Past Medical History / Comment(s): Insomnia History of Any Multi-Drug Resistant Organisms: None Reported Past Surgical History: Joint Replacement Additional Past Surgical History / Comment(s): left hip replacement Past Psychological History: Bipolar Smoking Status: Former smoker Past Alcohol Use History: Abuse, Daily, Heavy Past Drug Use History: None Reported Medications and Allergies Home Medications Medication Instructions Recorded Confirmed Type ARIPiprazole [Abilify] 1 mg PO HS 07/25/18 04/25/20 History Cyanocobalamin [Vitamin B-12] 500 mcg PO DAILY 04/25/20 04/25/20 History Diazepam [Valium] 5 mg PO TID PRN 04/25/20 04/25/20 History Famotidine [Pepcid] 20 mg PO BID 04/25/20 04/25/20 History Losartan Potassium 100 mg PO DAILY 04/25/20 04/25/20 History Venlafaxine HCl ER [Effexor Xr] 75 mg PO DAILY 04/25/20 04/25/20 History Vit C/E/Zn/Coppr/Lutein/Zeaxan 1 cap PO DAILY 04/25/20 04/25/20 History [Preservision Areds 2 Softgel] traZODone HCL 100 mg PO HS 04/25/20 04/25/20 History Allergies Allergy/AdvReac Type Severity Reaction Status Date / Time celecoxib [From Celebrex] Allergy Unknown Verified 04/25/20 11:25 rifampin Allergy Rash/Hives Verified 04/25/20 11:25 Sulfa (Sulfonamide Allergy Unknown Verified 04/25/20 11:25 Antibiotics) steroids Allergy Skin Uncoded 04/25/20 09:59 Outbreak Physical Exam Vitals: Vital Signs Temp Pulse Pulse Resp BP BP Pulse Ox 04/26/20 08:00 98.1 F 70 16 137/94 97 04/26/20 04:00 97.7 F 77 16 127/87 98 04/26/20 00:10 98 F 79 15 113/66 98 04/25/20 20:00 97.8 F 65 16 136/91 97 04/25/20 15:38 78 16 131/97 96 04/25/20 14:27 67 18 134/93 98 04/25/20 14:14 97.8 F 70 14 160/87 99 04/25/20 13:00 75 16 140/96 100 04/25/20 11:25 79 16 148/95 04/25/20 09:55 98.3 F 95 18 157/99 98 Intake and Output 04/25/20 04/26/20 04/26/20 22:59 06:59 14:59 Other: Voiding Method Toilet # Voids 1 2 Results 04/25/20 10:17 04/25/20 10:17 Cardiac Enzymes 04/25/20 04/25/20 04/25/20 Range/Units 10:17 10:17 14:46 AST 34 (14-36) U/L Troponin I <0.012 <0.012 (0.000-0.034) ng/mL 04/25/20 Range/Units 18:21 AST (14-36) U/L Troponin I <0.012 (0.000-0.034) ng/mL Coagulation 04/25/20 04/25/20 04/26/20 Range/Units 10:17 20:16 06:40 PT 9.6 (9.0-12.0) sec APTT 24.7 58.3 H 49.3 H (22.0-30.0) sec Lipids 04/26/20 Range/Units 06:40 Triglycerides 61 (<150) mg/dL Cholesterol 237 H (<200) mg/dL HDL Cholesterol 143 H (40-60) mg/dL CBC 04/25/20 Range/Units 10:17 WBC 5.6 (3.8-10.6) k/uL RBC 4.35 (3.80-5.40) m/uL Hgb 13.3 (11.4-16.0) gm/dL Hct 42.1 (34.0-46.0) % Plt Count 246 (150-450) k/uL Comprehensive Metabolic Panel 04/25/20 Range/Units 10:17 Sodium 135 L (137-145) mmol/L Potassium 4.4 (3.5-5.1) mmol/L Chloride 105 (98-107) mmol/L Carbon Dioxide 23 (22-30) mmol/L BUN 16 (7-17) mg/dL Creatinine 0.86 (0.52-1.04) mg/dL Glucose 109 H (74-99) mg/dL Calcium 9.7 (8.4-10.2) mg/dL AST 34 (14-36) U/L ALT 25 (4-34) U/L Alkaline Phosphatase 106 (38-126) U/L Total Protein 7.0 (6.3-8.2) g/dL Albumin 4.5 (3.5-5.0) g/dL Current Medications Generic Name Dose Route Start Last Admin Trade Name Frequiana PRN Reason Stop Dose Admin Acetaminophen 650 mg 04/25/20 18:24 04/25/20 18:42 Tylenol Tab PO 650 mg Q6HR PRN Administration Fever and/ or Pain Aripiprazole 1 mg 04/25/20 21:00 04/25/20 22:23 Abilify PO 1 mg HS YAMILETH Administration Aspirin 81 mg 04/27/20 09:00 Aspirin PO DAILY YAMILETH Cyanocobalamin 500 mcg 04/26/20 09:00 04/26/20 08:05 Vitamin B-12 PO 500 mcg DAILY YAMILETH Administration Diazepam 5 mg 04/25/20 18:13 04/25/20 22:24 Valium PO 5 mg TID PRN Administration Anxiety Famotidine 20 mg 04/25/20 21:00 04/26/20 08:05 Pepcid PO 20 mg BID YAMILETH Administration Dobutamine HCl/Dextrose 500 mg 250 mls @ 19.731 mls/hr 04/26/20 09:20 / IV Solution IV 04/26/20 22:00 .[id number] ONE Protocol 10 MCG/KG/MIN Losartan Potassium 100 mg 04/26/20 09:00 04/26/20 08:04 Cozaar PO 100 mg DAILY YAMILETH Administration Metoprolol Succinate 25 mg 04/26/20 09:00 Toprol Xl PO DAILY YAMILETH Nitroglycerin 0.4 mg 04/25/20 13:49 Nitrostat SUBLINGUAL Q5M PRN Chest Pain Trazodone HCl 100 mg 04/25/20 21:00 04/25/20 22:23 Desyrel PO 100 mg HS YAMILETH Administration Venlafaxine HCl 75 mg 04/26/20 09:00 04/26/20 08:11 Effexor Xr PO 75 mg DAILY YAMILETH Administration Intake and Output 04/25/20 04/26/20 04/26/20 22:59 06:59 14:59 Other: Voiding Method Toilet # Voids 1 2 04/25/20 10:17 04/25/20 10:17
[2020-04-26] MEDS ORDERED: amLODIPine 5 MG TAB PO SCH (13:15)
--- NOTE | 2020-04-26 13:52 | ECHOS ---
Referral Reason:chest pain MEASUREMENTS -------- HEIGHT: 170.2 cm WEIGHT: 65.8 kg BP: 160/110 RVIDd: 3.4 cm (< 3.3) IVSd: 1.1 cm (0.6 - 1.1) LVIDd: 3.3 cm (3.9 - 5.3) LVPWd: 1.4 cm (0.6 - 1.1) IVSs: 1.6 cm LVIDs: 2.0 cm LVPWs: 1.4 cm LAESV Index (A-L): 31.95 ml/m Ao Diam: 3.5 cm (2.0 - 3.7) AV Cusp: 2.1 cm (1.5 - 2.6) MV EXCURSION: 10.738 mm (> 18.000) MV EF SLOPE: 64 mm/s (70 - 150) EPSS: 1.3 cm MV E Davidson: 0.50 m/s MV DecT: 296 ms MV A Davidson: 0.70 m/s MV E/A Ratio: 0.71 RAP: 5.00 mmHg RVSP: 33.10 mmHg FINDINGS -------- Sinus rhythm. This was a technically adequate study. The left ventricular size is normal. There is mild concentric left ventricular hypertrophy. There is normal global left ventricular contractility. Overall left ventricular systolic function is nor mal with, an EF between 55 - 60 %. The diastolic filling pattern is normal for the age of the patie nt 7.67. The right ventricle is mildly enlarged. LA is midly dilated 29-33ml/m2. The right atrial size is normal. Interatrial and interventricular septum intact. There is no evidence of aortic regurgitation. There is no evidence of aortic stenosis. There is trace mitral regurgitation. Mild tricuspid regurgitation present. There is borderline pulmonary hypertension. The right ventr icular systolic pressure, as measured by Doppler, is 33.10mmHg. There is no pulmonic regurgitation present. The aortic root size is normal. Normal inferior vena cava with normal inspiratory collapse consistent with estimated right atrial pre ssure of 5 mmHg. There is no pericardial effusion. CONCLUSIONS -------- 1. Sinus rhythm. 2. This was a technically adequate study. 3. The left ventricular size is normal. 4. There is mild concentric left ventricular hypertrophy. 5. There is normal global left ventricular contractility. 6. Overall left ventricular systolic function is normal with, an EF between 55 - 60 %. 7. The diastolic filling pattern is normal for the age of the patient 7.67 8. The right ventricle is mildly enlarged. 9. LA is midly dilated 29-33ml/m2. 10. The right atrial size is normal. 11. Interatrial and interventricular septum intact. 12. There is no evidence of aortic regurgitation. 13. There is no evidence of aortic stenosis. 14. There is trace mitral regurgitation. 15. Mild tricuspid regurgitation present. 16. There is borderline pulmonary hypertension. 17. The right ventricular systolic pressure, as measured by Doppler, is 33.10mmHg. 18. There is no pulmonic regurgitation present. 19. The aortic root size is normal. 20. Normal inferior vena cava with normal inspiratory collapse consistent with estimated right atrial pressure of 5 mmHg. 21. There is no pericardial effusion. SOFTWARE QUALITY AUTOMATION ENGINEER: Saba Carter RDCS
--- NOTE | 2020-04-26 14:22 | ECHOS ---
STRESS ECHOCARDIOGRAM LUMASON: INDICATIONS: Chest pain. MEDICATIONS: BASELINE HEART RATE: 67 BASELINE BLOOD PRESSURE: 153/95 MAXIMUM HEART RATE: 142 MAXIMUM BLOOD PRESSURE: 197/65 85% MPHR: 133 100% MPHR: 157 METS: MAXIMUM STAGE REACHED: TOTAL EXERCISE TIME: CLINICAL INFORMATION: Baseline rhythm is sinus mechanism, rate of 67, normal axis and intervals. Normal echocardiogram. Baseline blood pressure 153/95 mmHg. Patient exercised on Aidan protocol for 10 minute 43 seconds reaching peak rate 142 beats per minute which is equal to 90% maximum predicted heart rate. Peak blood pressure 197/65 mmHg. Test was terminated due to fatigue. There was no chest pain. Electrocardiograph monitoring revealed rare PVCs there was no evidence of diagnostic ischemic ST deviation. FINDINGS: Baseline echocardiogram revealed normal wall motion. At peak exercise, there was normal wall motion augmentation with no hypokinesis or dyskinesis. CONCLUSION: 1. Good exercise tolerance with normal echocardiograph response to exercise and rare PVCs. 2. Normal stress echocardiogram with no evidence of stress-induced ischemia. MMODL / IJN: [id number] /
[2020-04-26 15:57] VITALS: BP 147/95; PULSE 70; TEMP 97.8
[2020-04-27] MEDS ORDERED: ASPIRIN 81 MG PO SCH (09:00)
--- NOTE | 2020-04-28 10:29 | P.DS ---
Providers Date of admission: 04/25/20 13:49 Expected date of discharge: 04/26/20 Attending physician: Divya Foley Consults: 04/25/20 13:49 Consult Physician Urgent Consulting Provider: [facility] Consult Reason/Comments: [place] Do you want consulting provider notified?: Yes Primary care physician: Syd Barnes [facility] Course: 63-year-old female one of Dr. Barnes's patient with past medical history of hypertension hyperlipidemia who had chronic arthritis and chronic depression who developed to have significant midsternal chest pain on and off for the last few days over a week ago she developed to have significantly elevated blood pressure running over 160 systolic over 100 diastolic on regular basis and developed to have exertional chest pain with worsening symptoms sometime with minimum exertion radiating toward her left arm as a midsternal chest discomfort with numbness in the left arm associated with mild palpitation cold sweat and nausea feeling. Patient symptoms become much worse today ended up coming to the emergency department at [facility] where was seen and evaluated her d- dimer was elevated patient ended up going for CTA came back negative for wrap PE, CK with troponin came back negative EKG did not show any significant change at the time. Patient had respond to nitro paste with significant relief of her chest pain and discomfort with the blood pressure become under better control afterward. Patient was started on heparin drip nitro patch and admitted to the hospital shortly after with the above problem. 04/26: Patient has been seen by cardiology and echocardiogram and stress test have been ordered. Heparin drip has been discontinued. Patient states she has had ongoing problems with chest pain. She denies having any headache. Patient complains of numbness in her feet and she does admit to to bulging disc and scoliosis. Patient also complains of weakness when she is hungry most likely secondary to hypoglycemia/borderline diabetes. Patient does give history of having borderline diabetes. She has been continued on losartan and Toprol-XL added to start after stress test. Patient also started on amlodipine as blood pressure remained elevated. She has been afebrile, heart rate 70, blood pressure 137/94, pulse ox 97% on room air. Stress echocardiogram revealed normal findings with no stress-induced ischemia. Echocardiogram reveals EF of 55-60% with mild concentric left ventricular hypertrophy, LA is mildly dilated. Trace mitral regurgitation, mild tricuspid regurgitation, borderline pulmonary hypertension. Patient was cleared by cardiology for discharge home. Patient will be discharged home today in stable condition. Discharge diagnoses: 1 Unstable angina 2 noncontrolled hypertension 3 hyperlipidemia 4 chronic bipolar disorder 5 chronic insomnia 6 severe GERD Discharge plan: home Impression and plan of care have been directed as dictated by the signing yvonne cortez. Yesy Torres nurse practitioner acting as scribe for signing physician. Patient Condition at Discharge: Good Plan - Discharge Summary New Discharge Prescriptions: New Metoprolol Succinate (ER) [Toprol XL] 25 mg PO DAILY #30 tab.er.24h amLODIPine [Norvasc] 5 mg PO DAILY #30 tab Continue ARIPiprazole [Abilify] 1 mg PO HS traZODone HCL 100 mg PO HS Venlafaxine HCl ER [Effexor XR] 75 mg PO DAILY Famotidine [Pepcid] 20 mg PO BID Cyanocobalamin [Vitamin B-12] 500 mcg PO DAILY Losartan Potassium 100 mg PO DAILY Vit C/E/Zn/Coppr/Lutein/Zeaxan [Preservision Areds 2 Softgel] 1 cap PO DAILY Diazepam [Valium] 5 mg PO TID PRN PRN Reason: Anxiety Discharge Medication List ARIPiprazole [Abilify] 1 mg PO HS 07/25/18 [History] Cyanocobalamin [Vitamin B-12] 500 mcg PO DAILY 04/25/20 [History] Diazepam [Valium] 5 mg PO TID PRN 04/25/20 [History] Famotidine [Pepcid] 20 mg PO BID 04/25/20 [History] Losartan Potassium 100 mg PO DAILY 04/25/20 [History] Venlafaxine HCl ER [Effexor XR] 75 mg PO DAILY 04/25/20 [History] Vit C/E/Zn/Coppr/Lutein/Zeaxan [Preservision Areds 2 Softgel] 1 cap PO DAILY 04/25/20 [History] traZODone HCL 100 mg PO HS 04/25/20 [History] Metoprolol Succinate (ER) [Toprol XL] 25 mg PO DAILY #30 tab.er.24h 04/26/20 [Rx] amLODIPine [Norvasc] 5 mg PO DAILY #30 tab 04/26/20 [Rx] Follow up Appointment(s)/Referral(s): Kavin Cummings MD [STAFF PHYSICIAN] - 1 Week Syd Barnes MD [Primary Care Provider] - 3 Days Patient Instructions/Handouts: Chest Pain (DC), Hypertension (DC) Discharge Disposition: HOME SELF-CARE
== END 2020-04-26 18:08 | disposition home or self-care (01) ==
LOC: EC 09:51 → 1SOBS 13:49
PROVIDERS: ADMIT Family Medicine; ATTEND Family Medicine
DX: I20.0 Unstable angina (principal); R00.2 Palpitations; Z11.59 Encounter for screening for other viral diseases; E78.5 Hyperlipidemia, unspecified; F10.10 Alcohol abuse, uncomplicated; F31.9 Bipolar disorder, unspecified; F51.04 Psychophysiologic insomnia; I11.9 Hypertensive heart disease without heart failure; K21.9 Gastro-esophageal reflux disease without esophagitis; M41.9 Scoliosis, unspecified; R73.03 Prediabetes; Z79.899 Other long term (current) drug therapy; Z87.891 Personal history of nicotine dependence; Z96.642 Presence of left artificial hip joint; Z88.2 Allergy status to sulfonamides; Z88.8 Allergy status to other drugs, medicaments and biological substances
CPT/HCPCS: 96366 ×3; 96376; 96365; 99291; 36415; 93005; 93306; 93351; 85379; 80061; 80053; 83735; 84484; 85025; 85610; 85730 ×2; 71046; 71275; G0378 ×2; U0003; J1250; J1644 ×2; Q9950; Q9967

== ENCOUNTER 2020-07-30 12:11 | Emergency (ER) | payer BC ==
[2020-07-30 12:21] VITALS: TEMP 98.1
[2020-07-30] MEDS ORDERED: HYDROmorphone 1 MG/ML 1 ML SYRINGE IVP STA ×2 (12:25→14:43)
[2020-07-30] MEDS ORDERED: ETOMIDATE 2 MG/ML 10 ML VIAL IVP STA (12:34)
[2020-07-30] MEDS ORDERED: LORazepam 2 MG/ML INJ IV STA (12:50)
--- NOTE | 2020-07-30 13:04 | XR ---
EXAMINATION TYPE: XR ankle limited LT DATE OF EXAM: 07/30/2020 COMPARISON: NONE HISTORY: Pain FINDINGS: Two views of the ankle demonstrate fracture dislocation with comminuted displaced fractures of the di stal fibula and tibia. There is complete dislocation at the ankle joint. Difficult to assess the post erior malleolus. There is definitive fractures involving the lateral and medial malleolus with signif icant displacement. IMPRESSION: 1. Complex fracture or dislocation as discussed above
[2020-07-30 13:13] VITALS: BP 139/88; PULSE 64; RESP 17
--- NOTE | 2020-07-30 13:14 | XR ---
EXAMINATION TYPE: XR ankle limited LT DATE OF EXAM: 07/30/2020 COMPARISON: NONE HISTORY: Pain FINDINGS: Two views of the ankle demonstrate persistent dislocation or subluxation of the ankle mortise with di splaced fractures involving the medial and lateral malleolus. Findings do appear improved. Cannot exc lude a chip fracture off the posterior tibia, malleolus. IMPRESSION: 1. Improved alignment with persistent displaced fractures and distortion of the ankle mortise with jacobsen bluxation of the ankle joint.
--- NOTE | 2020-07-30 13:15 | ED ---
General Adult HPI - General Chief complaint: Extremity Injury, Lower Stated complaint: Fall, L Ankle Injury Time Seen by Provider: 07/30/20 12:20 Source: patient, EMS, RN notes reviewed Mode of arrival: EMS Limitations: no limitations - History of Present Illness Initial comments: Patient is a pleasant 64-year-old female presenting to the emergency department by EMS for a fall. Patient states she slipped going up the stairs and fell 3-6 steps. Patient states she did not hit her head or lose consciousness. No neck or back pain. No chest pain or dyspnea. No abdominal pain. Patient complains of severe left ankle pain, unable to ambulate. Patient does drink alcohol however denies any today. Patient did have a similar fall 2 days ago and did strike her head and ribs at that time. - Related Data Home Medications Medication Instructions Recorded Confirmed ARIPiprazole [Abilify] 1 mg PO HS 07/25/18 04/25/20 Cyanocobalamin [Vitamin B-12] 500 mcg PO DAILY 04/25/20 04/25/20 Diazepam [Valium] 5 mg PO TID PRN 04/25/20 04/25/20 Famotidine [Pepcid] 20 mg PO BID 04/25/20 04/25/20 Losartan Potassium 100 mg PO DAILY 04/25/20 04/25/20 Venlafaxine HCl ER [Effexor XR] 75 mg PO DAILY 04/25/20 04/25/20 Vit C/E/Zn/Coppr/Lutein/Zeaxan 1 cap PO DAILY 04/25/20 04/25/20 [Preservision Areds 2 Softgel] traZODone HCL 100 mg PO HS 04/25/20 04/25/20 Previous Rx's Medication Instructions Recorded Metoprolol Succinate (ER) [Toprol 25 mg PO DAILY #30 tab.er.24h 04/26/20 XL] amLODIPine [Norvasc] 5 mg PO DAILY #30 tab 04/26/20 Allergies Allergy/AdvReac Type Severity Reaction Status Date / Time celecoxib [From Celebrex] Allergy Unknown Verified 04/25/20 11:25 rifampin Allergy Rash/Hives Verified 04/25/20 11:25 Sulfa (Sulfonamide Allergy Unknown Verified 04/25/20 11:25 Antibiotics) steroids Allergy Skin Uncoded 04/25/20 09:59 Outbreak Review of Systems ROS Statement: Those systems with pertinent positive or pertinent negative responses have been documented in the HPI. ROS Other: All systems not noted in ROS Statement are negative. Constitutional: Denies: fever Eyes: Denies: eye pain ENT: Denies: ear pain Respiratory: Denies: cough, dyspnea Cardiovascular: Denies: chest pain Endocrine: Denies: fatigue Gastrointestinal: Denies: abdominal pain Genitourinary: Denies: dysuria Musculoskeletal: Reports: as per HPI. Denies: back pain Skin: Denies: rash Neurological: Denies: headache, weakness Past Medical History Past Medical History: Hypertension Additional Past Medical History / Comment(s): Insomnia History of Any Multi-Drug Resistant Organisms: None Reported Past Surgical History: Joint Replacement Additional Past Surgical History / Comment(s): left hip replacement, 2 broken ribs on right side. Past Psychological History: Bipolar Smoking Status: Former smoker Past Alcohol Use History: Abuse, Daily, Heavy Past Drug Use History: None Reported General Exam Limitations: no limitations General appearance: alert, in no apparent distress Head exam: Present: normocephalic Eye exam: Present: normal appearance, PERRL ENT exam: Present: normal oropharynx Neck exam: Present: normal inspection. Absent: tenderness Respiratory exam: Present: normal lung sounds bilaterally Cardiovascular Exam: Present: regular rate, normal rhythm GI/Abdominal exam: Present: soft. Absent: tenderness Extremities exam: Present: tenderness (Left ankle with deformity and skin tenting. Distally patient is able to move toes and good sensation. Dorsalis pedis pulse intact.) Back exam: Absent: tenderness Neurological exam: Present: alert, oriented X3, CN II-XII intact. Absent: motor sensory deficit Psychiatric exam: Present: normal affect, normal mood Skin exam: Present: normal color Course Vital Signs 07/30/20 07/30/20 07/30/20 12:15 12:34 12:45 Temperature 98.1 F Pulse Rate 74 63 75 Respiratory 18 18 16 Rate Blood Pressure 126/88 132/91 145/74 O2 Sat by Pulse 97 99 99 Oximetry 07/30/20 07/30/20 12:50 13:05 Temperature Pulse Rate 72 64 Respiratory 18 17 Rate Blood Pressure 164/98 139/88 O2 Sat by Pulse 99 99 Oximetry - Reevaluation(s) Reevaluation #1: 07/30/20 13:24 Following reduction case was discussed with Dr. Guzman who didn't feel patient could be managed as an outpatient if other testing looks good. 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 Cap refill less than 2 seconds.) - Procedural Sedation Procedural Sedation Start Time: 12:35 Procedural Sedation Stop Time: 13:00 Indications: fracture/dislocation reduction ASA Class: II Mallampati Airway Score: 2 Preparation: shelter monitor applied, pulse oximeter, capnometry used, supplemental O2 applied IV Etomidate Dose (mgs): 16 Complications: none Patient Tolerated Procedure: well, no complications Medical Decision Making - Medical Decision Making Patient reevaluated. Patient and family updated. Patient does request to be discharged home. Patient is aware of need for close follow-up with orthopedics and need for surgery as well as specifically need for nonweightbearing on the left ankle. is also aware. Patient does have Surrency at home. - Lab Data Result diagrams: 07/30/20 13:24 07/30/20 13:24 Lab Results 07/30/20 07/30/20 07/30/20 Range/Units 13:24 13:24 13:24 WBC 12.5 H (3.8-10.6) k/uL RBC 3.49 L (3.80-5.40) m/uL Hgb 11.7 (11.4-16.0) gm/dL Hct 34.5 (34.0-46.0) % MCV 98.8 (80.0-100.0) fL MCH 33.6 (25.0-35.0) pg MCHC 34.0 (31.0-37.0) g/dL RDW 12.5 (11.5-15.5) % Plt Count 222 (150-450) k/uL Neutrophils % 92 % Lymphocytes % 5 % Monocytes % 2 % Eosinophils % 0 % Basophils % 0 % Neutrophils # 11.5 H (1.3-7.7) k/uL Lymphocytes # 0.6 L (1.0-4.8) k/uL Monocytes # 0.3 (0-1.0) k/uL Eosinophils # 0.0 (0-0.7) k/uL Basophils # 0.0 (0-0.2) k/uL PT 9.6 (9.0-12.0) sec INR 0.9 (<1.2) APTT 23.7 (22.0-30.0) sec Sodium 135 L (137-145) mmol/L Potassium 4.0 (3.5-5.1) mmol/L Chloride 105 (98-107) mmol/L Carbon Dioxide 27 (22-30) mmol/L Anion Gap 3 mmol/L BUN 19 H (7-17) mg/dL Creatinine 0.74 (0.52-1.04) mg/dL Est GFR (CKD-EPI)AfAm >90 (>60 ml/min/1.73 sqM) Est GFR (CKD-EPI)NonAf 87 (>60 ml/min/1.73 sqM) Glucose 119 H (74-99) mg/dL Calcium 8.8 (8.4-10.2) mg/dL Total Bilirubin 0.6 (0.2-1.3) mg/dL AST 36 (14-36) U/L ALT 31 (4-34) U/L Alkaline Phosphatase 80 (38-126) U/L Total Protein 5.9 L (6.3-8.2) g/dL Albumin 3.6 (3.5-5.0) g/dL Serum Alcohol <10 mg/dL - Radiology Data Radiology results: report reviewed (Computed tomography scan of the brain and cervical spine shows no acute fracture or dislocation. No acute cranial hemorrhage or shift.), image reviewed (Chest x-ray shows no acute process. Pelvis x-ray shows no acute fracture. Original x-ray shows complex fracture dislocation left tib-fib with ankle dislocation. Repeat x-ray shows improved alignment.) Disposition Clinical Impression: Displaced trimalleolar fracture of left ankle Disposition: HOME SELF-CARE Condition: Stable Instructions (If sedation given, give patient instructions): Ankle Fracture (ED) Additional Instructions: Surrency as needed for pain. Please follow-up with primary care physician in the next couple days for recheck. Please follow-up with orthopedics, Dr. Guzman Saturday, number provided. No weightbearing left leg. Use crutches, prescription provided. Ice to affected area. Is patient prescribed a controlled substance at d/c from ED?: No Referrals: Narinder Barnes MD [Primary Care Provider] - 1-2 days Telly Guzman DO [Doctor of Osteopathic Medicine] - 1-2 days Time of Disposition: 14:50
[2020-07-30 13:33] LABS: Basophils % (A) 0 %; Eosinophils % (A) 0 %; HCT 34.5 % (34.0-46.0); HGB 11.7 gm/dL (11.4-16.0); Lymphocytes # (A) 0.6 k/uL (1.0-4.8); Lymphocytes % (A) 5 %; MCH 33.6 pg (25.0-35.0); MCV 98.8 fL (80.0-100.0); Mean Platelet Volume 7.1; Monocytes # (A) 0.3 k/uL (0-1.0); Monocytes % (A) 2 %; Neutrophils # (A) 11.5 k/uL (1.3-7.7); Neutrophils % (A) 92 %; Platelet Count 222 k/uL (150-450); RBC 3.49 m/uL (3.80-5.40); RDW 12.5 % (11.5-15.5); WBC 12.5 k/uL (3.8-10.6)
[2020-07-30 13:42] LABS: ALT 31 U/L (4-34); AST 36 U/L (14-36); African American GFR (CKD) >90 (>60 ml/min/1.73 sqM); Albumin 3.6 g/dL (3.5-5.0); Alcohol <10 mg/dL; Alkaline Phosphatase 80 U/L (38-126); Anion Gap 3 mmol/L; Blood Urea Nitrogen 19 mg/dL (7-17); Calcium 8.8 mg/dL (8.4-10.2); Carbon Dioxide 27 mmol/L (22-30); Chloride 105 mmol/L (98-107); Glucose 119 mg/dL (74-99); INR 0.9 (<1.2); Non-African American GFR(CKD) 87 (>60 ml/min/1.73 sqM); Partial Thromboplastin Time 23.7 sec (22.0-30.0); Prothrombin Time 9.6 sec (9.0-12.0); Sodium 135 mmol/L (137-145); Total Bilirubin 0.6 mg/dL (0.2-1.3); Total Protein 5.9 g/dL (6.3-8.2)
--- NOTE | 2020-07-30 14:03 | CT ---
EXAMINATION TYPE: CT brain presleyine wo con DATE OF EXAM: 07/30/2020 COMPARISON: 07/26/2018. HISTORY: Fall with head and neck injury. CT DLP: 1358.7 mGycm Automated exposure control for dose reduction was used. TECHNIQUE: CT scan of the head and cervical spine are performed without contrast. FINDINGS: There is no acute intracranial hemorrhage, mass effect, or midline shift identified. The ventricles and sulci are within normal limits in size. The globes are intact and the visualized sin uses are clear. Cervical spine is visualized in its entirety from C1 through upper thoracic levels and demonstrates s atisfactory alignment without evidence of acute fracture or dislocation. There is multilevel moderate to severe disc and facet degenerative changes throughout the cervical spine. Prevertebral soft tissu e appears within normal limits. The C1-C2 articulation is unremarkable. IMPRESSION: 1. There is no acute fracture or dislocation evident in the cervical spine. 2. No acute intracranial hemorrhage, mass effect, or midline shift is seen.
--- NOTE | 2020-07-30 14:05 | XR ---
EXAMINATION TYPE: XR chest 1V portable DATE OF EXAM: 07/30/2020 COMPARISON: 04/25/2020. HISTORY: Fall with chest pain. TECHNIQUE: Single frontal view of the chest is obtained. FINDINGS: There is no focal air space opacity, pleural effusion, or pneumothorax seen. The cardiac silhouette size is within normal limits. The osseous structures are intact. IMPRESSION: No acute process.
--- NOTE | 2020-07-30 14:09 | XR ---
EXAMINATION TYPE: XR pelvis AP view DATE OF EXAM: 07/30/2020 COMPARISON: NONE HISTORY: Pain The osseous structures are intact and the joint spaces are preserved. No acute fracture is seen. Vi sualized bowel gas pattern is nonspecific. Calcifications in pelvis likely vascular. Severe arthropa thy of the right hip and postsurgical change left hip. Degenerative change of the lower lumbar spine. IMPRESSION: 1. No acute fracture.
== END 2020-07-30 23:20 | disposition home or self-care (01) ==
LOC: EC 12:11
DX: S82.852A Displaced trimalleolar fracture of left lower leg, initial encounter for closed fracture (principal); F31.9 Bipolar disorder, unspecified; I10 Essential (primary) hypertension; Z79.899 Other long term (current) drug therapy; Z88.2 Allergy status to sulfonamides; Z88.6 Allergy status to analgesic agent; Z88.8 Allergy status to other drugs, medicaments and biological substances; Z87.891 Personal history of nicotine dependence; Z96.642 Presence of left artificial hip joint; W10.9XXA Fall (on) (from) unspecified stairs and steps, initial encounter; Y92.009 Unspecified place in unspecified non-institutional (private) residence as the place of occurrence of the external cause
CPT/HCPCS: 36415; 80053; 85025; 85610; 85730; 80320; 72170; 73600; 71045; 72125; 70450; 99284; 96374; 96375 ×2; 96376; 27818; 99152; 99153; J2060; J1170

== ENCOUNTER → 2021-03-08 | Outpatient (CLI) | payer BC ==
--- NOTE | 2021-03-09 14:52 | MM ---
Reason for exam: screening (asymptomatic). Last mammogram was performed 1 year and 6 months ago. History: Patient is postmenopausal. Family history of breast cancer in paternal grandmother. Took hormonal contraceptives for 6 months. Physical Findings: A clinical breast exam by your physician is recommended on an annual basis and results should be correlated with mammographic findings. MG 3D Screening Mammo W/Cad Bilateral CC and MLO view(s) were taken. Prior study comparison: September 18, 2019, bilateral MG 3d screening mammo w/cad. July 14, 2018, bilateral MG 3d screening mammo w/cad. The breast tissue is heterogeneously dense. This may lower the sensitivity of mammography. There is no discrete abnormality. No significant changes when compared with prior studies. ASSESSMENT: Negative, BI-RAD 1 RECOMMENDATION: Routine screening mammogram of both breasts in 1 year.
== END | disposition home or self-care (01) ==
LOC: RADMAMWWP 07:27
PROVIDERS: ATTEND Obstetrics & Gynecology
DX: Z12.31 Encounter for screening mammogram for malignant neoplasm of breast (principal); Z78.0 Asymptomatic menopausal state; Z80.3 Family history of malignant neoplasm of breast
CPT/HCPCS: 77063; 77067

== ENCOUNTER 2021-06-09 18:16 | Emergency (ER) | payer BC ==
[2021-06-09 19:23] VITALS: TEMP 98.7
[2021-06-09] MEDS ORDERED: SODIUM CHLORIDE 0.9% 1,000 ML IV STA (19:42)
--- NOTE | 2021-06-09 19:45 | ED ---
General Adult HPI - General Source: patient, RN notes reviewed Mode of arrival: ambulatory Limitations: no limitations <Keyshawn Ryan - Last Filed: 06/09/21 21:01> <Nik Trejo - Last Filed: 06/10/21 00:04> - General Chief complaint: Syncope Stated complaint: near syncope, fall, shoulder pain Time Seen by Provider: 06/09/21 19:15 - History of Present Illness Initial comments: Patient is a pleasant [age]-year-old female presenting to the emergency department following syncopal episode. Patient was doing light yard work when she felt lightheaded like she was going to pass out. Patient did fall and st rike her right shoulder. Patient believes she did pass out for a second or so. Patient only complains of right shoulder discomfort at this time. Patient states she normally does have balance problems, unchanged. No headache or confusion. No chest pain or dyspnea. (Keyshawn Ryan) - Related Data Home Medications Medication Instructions Recorded Confirmed ARIPiprazole [Abilify] 1 mg PO HS 07/25/18 04/25/20 Cyanocobalamin [Vitamin B-12] 500 mcg PO DAILY 04/25/20 04/25/20 Diazepam [Valium] 5 mg PO TID PRN 04/25/20 04/25/20 Famotidine [Pepcid] 20 mg PO BID 04/25/20 04/25/20 Losartan Potassium 100 mg PO DAILY 04/25/20 04/25/20 Venlafaxine HCl ER [Effexor XR] 75 mg PO DAILY 04/25/20 04/25/20 Vit C/E/Zn/Coppr/Lutein/Zeaxan 1 cap PO DAILY 04/25/20 04/25/20 [Preservision Areds 2 Softgel] traZODone HCL 100 mg PO HS 04/25/20 04/25/20 Previous Rx's Medication Instructions Recorded Metoprolol Succinate (ER) [Toprol 25 mg PO DAILY #30 tab.er.24h 04/26/20 XL] amLODIPine [Norvasc] 5 mg PO DAILY #30 tab 04/26/20 Allergies Allergy/AdvReac Type Severity Reaction Status Date / Time celecoxib [From Celebrex] Allergy Unknown Verified 06/09/21 19:23 rifampin Allergy Rash/Hives Verified 06/09/21 19:23 Sulfa (Sulfonamide Allergy Unknown Verified 06/09/21 19:23 Antibiotics) Review of Systems ROS Other: All systems not noted in ROS Statement are negative. Constitutional: Denies: fever Eyes: Denies: eye pain ENT: Denies: ear pain Respiratory: Denies: cough, dyspnea Cardiovascular: Denies: chest pain Endocrine: Denies: fatigue Gastrointestinal: Denies: abdominal pain Genitourinary: Denies: dysuria Musculoskeletal: Denies: back pain Skin: Denies: rash Neurological: Denies: headache, weakness, confusion <Keyshawn Ryan - Last Filed: 06/09/21 21:01> ROS Other: All systems not noted in ROS Statement are negative. <Nik Trejo - Last Filed: 06/10/21 00:04> ROS Statement: Those systems with pertinent positive or pertinent negative responses have been documented in the HPI. Past Medical History Past Medical History: Hypertension Additional Past Medical History / Comment(s): Insomnia History of Any Multi-Drug Resistant Organisms: None Reported Past Surgical History: Joint Replacement Additional Past Surgical History / Comment(s): left hip replacement, 2 broken ribs on right side, left ankle surgery Past Psychological History: Bipolar Smoking Status: Former smoker Past Alcohol Use History: Abuse, Daily, Heavy Past Drug Use History: None Reported <Keyshawn Ryan - Last Filed: 06/09/21 21:01> General Exam Limitations: no limitations General appearance: alert, in no apparent distress Head exam: Present: normocephalic Eye exam: Present: normal appearance, PERRL, EOMI. Absent: nystagmus ENT exam: Present: normal oropharynx Neck exam: Present: normal inspection. Absent: tenderness Respiratory exam: Present: normal lung sounds bilaterally Cardiovascular Exam: Present: regular rate, normal rhythm Expanded Peripheral pulses: 2+: Radial (R), Radial (L), Dorsalis Pedis (R), Dorsalis Pedis (L) GI/Abdominal exam: Present: soft. Absent: distended, tenderness, guarding, rebound, rigid, pulsatile mass Extremities exam: Present: tenderness (Right shoulder with mild swelling). Absent: pedal edema, calf tenderness Neurological exam: Present: alert, oriented X3, CN II-XII intact. Absent: motor sensory deficit Expanded Neurological exam: Present: protecting the airway Patient oriented to: Present: time Speech: Present: fluid speech Cranial nerves: EOM's Intact: Normal Sensory exam: Upper Extremity Light Touch: Normal, Lower Extremity Light Touch: Normal Motor strength exam: RUE: 5, LUE: 5, RLE: 5, LLE: 5 Eye Response: (4) open spontaneously Motor Response: (6) obeys commands Verbal Response: (5) oriented Psychiatric exam: Present: normal affect, normal mood Skin exam: Present: normal color <Keyshawn Ryan - Last Filed: 06/09/21 21:01> Course <Keyshawn Ryan - Last Filed: 06/09/21 21:01> <Nik Trejo - Last Filed: 06/10/21 00:04> Vital Signs 06/09/21 06/09/21 06/09/21 19:19 21:24 23:00 Temperature 98.7 F Pulse Rate 74 72 69 Respiratory 18 20 20 Rate Blood Pressure 112/69 111/74 131/89 O2 Sat by Pulse 98 97 99 Oximetry - Reevaluation(s) Reevaluation #1: 06/09/21 21:01 Case was discussed with Dr. Mckeon who did feel if d-dimer and computed tomography scan were negative patient can be discharged for outpatient follow-up. Case will be endorsed to Dr. Trejo at shift change. (Keyshawn Ryan) Reevaluation #2: 06/10/21 00:03 Medical records reviewed (Nik Trejo) Reevaluation #3: 06/10/21 00:03 Patient's pain is improved (Nik Trejo) Reevaluation #4: 06/10/21 00:04 Patient spoken at length with regarding results of findings, questions answered (Nik Trejo) EKG Findings - EKG Comments: EKG Findings:: Normal sinus rhythm with a rate of 71. [place] 138. QRS 86. QT 416. QTC 452. Normal axis. Normal QRS. No acute ST change. <Keyshawn Ryan - Last Filed: 06/09/21 21:01> Procedures - Orthopedic Splinting/Casting Injury #1 Side: right Upper Extremity Injury Location: clavicle Upper Extremity Immobilizer: sling/shoulder immobilizer <Nik Trejo - Last Filed: 06/10/21 00:04> Medical Decision Making - Lab Data Result diagrams: 06/09/21 20:13 06/09/21 20:13 <Keyshawn Ryan - Last Filed: 06/09/21 21:01> - Lab Data Result diagrams: 06/09/21 20:13 06/09/21 20:13 - Radiology Data Radiology results: report reviewed (CT chest negative for PE chest and shoulder x-ray does show clavicle fracture), image reviewed <Nik Trejo - Last Filed: 06/10/21 00:04> - Medical Decision Making 65 female status post fall with syncopal event. Patient fell on her right side sustain right clavicle fracture. Fractures placed in a sling here in the emergency department will follow-up with orthopedics, patient given pain control (Nik Trejo) - Lab Data Lab Results 06/09/21 06/09/21 06/09/21 Range/Units 20:13 20:13 20:13 WBC 6.5 (3.8-10.6) k/uL RBC 3.53 L (3.80-5.40) m/uL Hgb 11.3 L (11.4-16.0) gm/dL Hct 33.7 L (34.0-46.0) % MCV 95.4 (80.0-100.0) fL MCH 32.1 (25.0-35.0) pg MCHC 33.6 (31.0-37.0) g/dL RDW 15.0 (11.5-15.5) % Plt Count 235 (150-450) k/uL MPV 7.3 Neutrophils % 66 % Lymphocytes % 23 % Monocytes % 7 % Eosinophils % 1 % Basophils % 1 % Neutrophils # 4.3 (1.3-7.7) k/uL Lymphocytes # 1.5 (1.0-4.8) k/uL Monocytes # 0.5 (0-1.0) k/uL Eosinophils # 0.1 (0-0.7) k/uL Basophils # 0.1 (0-0.2) k/uL PT 9.8 (9.0-12.0) sec INR 0.9 (<1.2) APTT 23.6 (22.0-30.0) sec D-Dimer 2.06 H (<0.60) mg/L FEU Sodium (137-145) mmol/L Potassium (3.5-5.1) mmol/L Chloride (98-107) mmol/L Carbon Dioxide (22-30) mmol/L Anion Gap mmol/L BUN (7-17) mg/dL Creatinine (0.52-1.04) mg/dL Est GFR (CKD-EPI)AfAm (>60 ml/min/1.73 sqM) Est GFR (CKD-EPI)NonAf (>60 ml/min/1.73 sqM) Glucose (74-99) mg/dL Calcium (8.4-10.2) mg/dL Magnesium (1.6-2.3) mg/dL Total Bilirubin (0.2-1.3) mg/dL AST (14-36) U/L ALT (4-34) U/L Alkaline Phosphatase (38-126) U/L Troponin I (0.000-0.034) ng/mL Total Protein (6.3-8.2) g/dL Albumin (3.5-5.0) g/dL Urine Color Yellow Urine Appearance Clear (Clear) Urine pH 6.0 (5.0-8.0) Ur Specific [place] 1.020 (1.001-1.035) Urine Protein Trace H (Negative) Urine Glucose (UA) Negative (Negative) Urine Ketones Negative (Negative) Urine Blood Negative (Negative) Urine Nitrite Negative (Negative) Urine Bilirubin Negative (Negative) Urine Urobilinogen <2.0 (<2.0) mg/dL Ur Leukocyte Esterase Moderate H (Negative) Urine RBC 1 (0-5) /hpf Urine WBC 4 (0-5) /hpf Ur Squamous Epith Cells 2 (0-4) /hpf Hyaline Casts 1 (0-2) /lpf Urine Mucus Rare H (None) /hpf 06/09/21 06/09/21 Range/Units 20:13 20:13 WBC (3.8-10.6) k/uL RBC (3.80-5.40) m/uL Hgb (11.4-16.0) gm/dL Hct (34.0-46.0) % MCV (80.0-100.0) fL MCH (25.0-35.0) pg MCHC (31.0-37.0) g/dL RDW (11.5-15.5) % Plt Count (150-450) k/uL MPV Neutrophils % % Lymphocytes % % Monocytes % % Eosinophils % % Basophils % % Neutrophils # (1.3-7.7) k/uL Lymphocytes # (1.0-4.8) k/uL Monocytes # (0-1.0) k/uL Eosinophils # (0-0.7) k/uL Basophils # (0-0.2) k/uL PT (9.0-12.0) sec INR (<1.2) APTT (22.0-30.0) sec D-Dimer (<0.60) mg/L FEU Sodium 134 L (137-145) mmol/L Potassium 3.9 (3.5-5.1) mmol/L Chloride 104 (98-107) mmol/L Carbon Dioxide 25 (22-30) mmol/L Anion Gap 5 mmol/L BUN 20 H (7-17) mg/dL Creatinine 0.98 (0.52-1.04) mg/dL Est GFR (CKD-EPI)AfAm 71 (>60 ml/min/1.73 sqM) Est GFR (CKD-EPI)NonAf 61 (>60 ml/min/1.73 sqM) Glucose 104 H (74-99) mg/dL Calcium 9.4 (8.4-10.2) mg/dL Magnesium 2.0 (1.6-2.3) mg/dL Total Bilirubin <0.1 L (0.2-1.3) mg/dL AST 26 (14-36) U/L ALT 22 (4-34) U/L Alkaline Phosphatase 97 (38-126) U/L Troponin I <0.012 (0.000-0.034) ng/mL Total Protein 6.1 L (6.3-8.2) g/dL Albumin 3.7 (3.5-5.0) g/dL Urine Color Urine Appearance (Clear) Urine pH (5.0-8.0) Ur Specific [place] (1.001-1.035) Urine Protein (Negative) Urine Glucose (UA) (Negative) Urine Ketones (Negative) Urine Blood (Negative) Urine Nitrite (Negative) Urine Bilirubin (Negative) Urine Urobilinogen (<2.0) mg/dL Ur Leukocyte Esterase (Negative) Urine RBC (0-5) /hpf Urine WBC (0-5) /hpf Ur Squamous Epith Cells (0-4) /hpf Hyaline Casts (0-2) /lpf Urine Mucus (None) /hpf Disposition <Keyshawn Ryan - Last Filed: 06/09/21 21:01> Is patient prescribed a controlled substance at d/c from ED?: No <Nik Trejo - Last Filed: 06/10/21 00:04> Clinical Impression: Syncope due to orthostatic hypotension, Right clavicle fracture, Fall Disposition: HOME SELF-CARE Condition: Good Instructions (If sedation given, give patient instructions): Clavicle Fracture (ED), Fall Prevention for Older Adults (ED), Syncope (ED) Referrals: Syd Barnes MD [Primary Care Provider] - 1-2 days Neymar Fisher MD [STAFF PHYSICIAN] - 1-2 days
[2021-06-09 20:26] LABS: Basophils # (A) 0.1 k/uL (0-0.2); Basophils % (A) 1 %; Eosinophils # (A) 0.1 k/uL (0-0.7); Eosinophils % (A) 1 %; HCT 33.7 % (34.0-46.0); HGB 11.3 gm/dL (11.4-16.0); Lymphocytes # (A) 1.5 k/uL (1.0-4.8); Lymphocytes % (A) 23 %; MCH 32.1 pg (25.0-35.0); MCHC 33.6 g/dL (31.0-37.0); MCV 95.4 fL (80.0-100.0); Mean Platelet Volume 7.3; Monocytes # (A) 0.5 k/uL (0-1.0); Monocytes % (A) 7 %; Neutrophils # (A) 4.3 k/uL (1.3-7.7); Neutrophils % (A) 66 %; Platelet Count 235 k/uL (150-450); RBC 3.53 m/uL (3.80-5.40); WBC 6.5 k/uL (3.8-10.6)
[2021-06-09 20:35] LABS: ALT 22 U/L (4-34); AST 26 U/L (14-36); African American GFR (CKD) 71 (>60 ml/min/1.73 sqM); Albumin 3.7 g/dL (3.5-5.0); Alkaline Phosphatase 97 U/L (38-126); Anion Gap 5 mmol/L; Blood Urea Nitrogen 20 mg/dL (7-17); Calcium 9.4 mg/dL (8.4-10.2); Carbon Dioxide 25 mmol/L (22-30); Chloride 104 mmol/L (98-107); Glucose 104 mg/dL (74-99); Non-African American GFR(CKD) 61 (>60 ml/min/1.73 sqM); Potassium 3.9 mmol/L (3.5-5.1); Sodium 134 mmol/L (137-145); Total Bilirubin <0.1 mg/dL (0.2-1.3); Total Protein 6.1 g/dL (6.3-8.2)
--- NOTE | 2021-06-09 20:35 | XR ---
EXAMINATION TYPE: XR chest 2V DATE OF EXAM: 06/09/2021 COMPARISON: 07/30/2020 HISTORY: Syncope TECHNIQUE: FINDINGS: Heart and mediastinum are normal. Lungs are clear of infiltrate. There is no heart failure. Costophrenic angles are fairly clear. Bony thorax is intact. IMPRESSION: No active cardiopulmonary disease. There is improved inspiration compared to old exam.
--- NOTE | 2021-06-09 20:37 | XR ---
EXAMINATION TYPE: XR shoulder complete RT DATE OF EXAM: 06/09/2021 COMPARISON: NONE HISTORY: Shoulder pain TECHNIQUE: 3 views FINDINGS: There is comminuted fracture lateral and of the right clavicle. There is no significant dis placement. The glenohumeral joint is intact. IMPRESSION: Comminuted lateral right clavicle fracture.
[2021-06-09 20:40] LABS: INR 0.9 (<1.2); Partial Thromboplastin Time 23.6 sec (22.0-30.0); Prothrombin Time 9.8 sec (9.0-12.0)
[2021-06-09 20:52] LABS: Appearance,Urine Clear (Clear); Bilirubin,Urine Negative (Negative); Blood,Urine Negative (Negative); Color,Urine Yellow; Glucose,Urine (UA) Negative (Negative); Hyaline Casts,Urine 1 /lpf (0-2); Ketones,Urine Negative (Negative); Leukocyte Esterase,Urine Moderate (Negative); Mucus,Urine Rare /hpf; Nitrite,Urine Negative (Negative); Protein,Urine Trace (Negative); RBC,Urine 1 /hpf (0-5); Squamous Epithelial Cell,Urine 2 /hpf (0-4); Urobilinogen,Urine <2.0 mg/dL (<2.0); WBC,Urine 4 /hpf (0-5)
[2021-06-09 21:25] VITALS: RESP 20
--- NOTE | 2021-06-09 22:03 | CT ---
EXAMINATION TYPE: CT brain wo con DATE OF EXAM: 06/09/2021 COMPARISON: 07/30/2020 HISTORY: syncope CT DLP: 1129.4 mGycm Automated exposure control for dose reduction was used. Ventricles have normal size. There is no mass effect nor midline shift. There is no sign of intracran ial hemorrhage. The calvarium is intact. Skull base is intact. There is normal aeration of the mastoi d sinuses. IMPRESSION: Negative unenhanced head CT scan. No change compared to old exam.
--- NOTE | 2021-06-09 23:25 | CT ---
EXAMINATION TYPE: CT angio chest DATE OF EXAM: 06/09/2021 COMPARISON: 04/25/2020 HISTORY: Chest pain CT DLP: mGycm Automated exposure control for dose reduction was used. CONTRAST: There are 3-D post processed images. The contrast was Isovue 80 mL. The lungs are clear of consolidation. There is no pleural effusion. There is no evidence of a pulmona ry mass. Heart size is normal. There is no pericardial effusion. There is no mediastinal adenopathy. There are no hilar masses. Thoracic aorta is intact. There is no aneurysm or dissection. There is normal contrast opacification of the pulmonary arteries. There are n o filling defects. The bony thorax is intact. There is some degenerative spurring in the thoracic spi ne. I see no bony destructive process. IMPRESSION: Negative CT angiogram of the chest. No evidence of pulmonary embolism. No adverse change compared to old exam. No suspicious pulmonary mass.
[2021-06-09] MEDS ORDERED: MORPHINE SULFATE 4 MG/ML SYRINGE IVP STA (23:39)
[2021-06-09] MEDS ORDERED: KETOROLAC 15 MG/ML 1 ML VIAL IVP STA (23:40)
[2021-06-10] MEDS ORDERED: IBUPROFEN 600 MG STARTER PACK 4 TAB BTL PO STA (00:04)
[2021-06-10] MEDS ORDERED: ACET/COD 300 MG/30 MG STARTER PACK 6 TAB BTL PO STA (00:04)
[2021-06-10 00:17] VITALS: BP 144/79; PULSE 73
== END 2021-06-10 00:18 | disposition home or self-care (01) ==
LOC: EC 18:16
DX: S42.031A Displaced fracture of lateral end of right clavicle, initial encounter for closed fracture (principal); I95.1 Orthostatic hypotension; I10 Essential (primary) hypertension; F31.9 Bipolar disorder, unspecified; Z87.891 Personal history of nicotine dependence; W18.30XA Fall on same level, unspecified, initial encounter
CPT/HCPCS: 36415; 93005; 85379; 80053; 83735; 84484; 85025; 85610; 85730; 81001; 73030; 71046; 70450; 71275; 99285; 96374; 96375; 96361 ×3; J2270; J1885; Q9967

== ENCOUNTER 2021-08-25 11:39 | Emergency (ER) | payer BC, MEDICARE ==
[2021-08-25 12:53] VITALS: BP 123/76; PULSE 83; RESP 18; TEMP 97.3
--- NOTE | 2021-08-25 13:31 | ED ---
General Adult HPI - General Chief complaint: Extremity Injury, Lower Stated complaint: R Knee Pain Time Seen by Provider: 08/25/21 12:57 Source: patient, RN notes reviewed Mode of arrival: ambulatory Limitations: no limitations - History of Present Illness Initial comments: 66-year-old female presents emergency from chief complaint right knee pain. Patient states she's been increasing knee pain. Patient denies any trauma but states that she no she has severe arthritis and needs a knee replacement. She states she is scheduled for orthopedic consult in 2 weeks in [place]. Patient states that she's having pain on alleviated with [id number] medications. She was seen in urgent care had x-rays showed degenerative changes was given, according no relief of symptoms. - Related Data Home Medications Medication Instructions Recorded Confirmed ARIPiprazole [Abilify] 1 mg PO HS 07/25/18 04/25/20 Cyanocobalamin [Vitamin B-12] 500 mcg PO DAILY 04/25/20 04/25/20 Diazepam [Valium] 5 mg PO TID PRN 04/25/20 04/25/20 Famotidine [Pepcid] 20 mg PO BID 04/25/20 04/25/20 Losartan Potassium 100 mg PO DAILY 04/25/20 04/25/20 Venlafaxine HCl ER [Effexor XR] 75 mg PO DAILY 04/25/20 04/25/20 Vit C/E/Zn/Coppr/Lutein/Zeaxan 1 cap PO DAILY 04/25/20 04/25/20 [Preservision Areds 2 Softgel] traZODone HCL 100 mg PO HS 04/25/20 04/25/20 Previous Rx's Medication Instructions Recorded Metoprolol Succinate (ER) [Toprol 25 mg PO DAILY #30 tab.er.24h 04/26/20 XL] amLODIPine [Norvasc] 5 mg PO DAILY #30 tab 04/26/20 HYDROcodone/APAP 5-325MG [[place] 5] 1 each PO Q6HR PRN #12 tab 08/25/21 Allergies Allergy/AdvReac Type Severity Reaction Status Date / Time celecoxib [From Celebrex] Allergy Unknown Verified 08/25/21 12:49 meloxicam Allergy Rash/Hives Verified 08/25/21 12:49 rifampin Allergy Rash/Hives Verified 08/25/21 12:49 Sulfa (Sulfonamide Allergy Unknown Verified 08/25/21 12:49 Antibiotics) Review of Systems ROS Statement: Those systems with pertinent positive or pertinent negative responses have been documented in the HPI. ROS Other: All systems not noted in ROS Statement are negative. Past Medical History Past Medical History: Hypertension Additional Past Medical History / Comment(s): Insomnia History of Any Multi-Drug Resistant Organisms: None Reported Past Surgical History: Joint Replacement Additional Past Surgical History / Comment(s): left hip replacement, 2 broken ribs on right side, left ankle surgery Past Psychological History: Bipolar Smoking Status: Former smoker Past Alcohol Use History: Abuse, Daily, Heavy Past Drug Use History: None Reported General Exam Limitations: no limitations General appearance: alert, in no apparent distress Head exam: Present: atraumatic, normocephalic, normal inspection Eye exam: Present: normal appearance, PERRL, EOMI. Absent: scleral icterus, conjunctival injection, periorbital swelling ENT exam: Present: normal exam, normal oropharynx, mucous membranes moist Neck exam: Present: normal inspection, full ROM. Absent: tenderness, meningismus, lymphadenopathy Respiratory exam: Present: normal lung sounds bilaterally. Absent: respiratory distress, wheezes, rales, rhonchi, stridor Cardiovascular Exam: Present: regular rate, normal rhythm, normal heart sounds. Absent: systolic murmur, diastolic murmur, rubs, gallop, clicks Extremities exam: Present: other (Right knee there is a obvious swelling, effusion noted, no erythema full range of motion neurovascular intact, no calf tenderness to 5 tenderness.) Course Vital Signs 08/25/21 12:50 Temperature 97.3 F L Pulse Rate 83 Respiratory 18 Rate Blood Pressure 123/76 O2 Sat by Pulse 99 Oximetry Medical Decision Making - Medical Decision Making Outside x-rays were reviewed shows evidence of tricompartmental degenerative changes. Patient has an appointment she may follow up locally sooner patient requests to her scheduled appointment physician. Disposition Clinical Impression: Right knee pain, Effusion of right knee joint, Degenerative arthritis of knee Disposition: HOME SELF-CARE Condition: Stable Instructions (If sedation given, give patient instructions): Knee Pain (ED) Additional Instructions: Please return to the Emergency Department if symptoms worsen or any other concerns. Prescriptions: HYDROcodone/APAP 5-325MG [[place] 5] 1 each PO Q6HR PRN #12 tab PRN Reason: Pain Is patient prescribed a controlled substance at d/c from ED?: No Referrals: Syd Barnes MD [Primary Care Provider] - 1-2 days Time of Disposition: 13:30
== END 2021-08-25 14:11 | disposition home or self-care (01) ==
LOC: EC 11:39
DX: M17.11 Unilateral primary osteoarthritis, right knee (principal); M25.461 Effusion, right knee; I10 Essential (primary) hypertension; F31.9 Bipolar disorder, unspecified; Z88.2 Allergy status to sulfonamides; Z88.6 Allergy status to analgesic agent; Z96.642 Presence of left artificial hip joint; Z87.891 Personal history of nicotine dependence
CPT/HCPCS: 99283

== ENCOUNTER → 2022-04-09 | Outpatient (CLI) | payer MEDICARE ==
--- NOTE | 2022-04-10 09:29 | MM ---
Reason for Exam: Screening (asymptomatic). Last mammogram was performed 1 year(s) and 1 month(s) ago. Patient History: Menarche at age 14. First Full-Term at age 27. Postmenopausal. Patient has history of breast feeding. Hormonal Contraceptives for 6 months. Paternal grandmother had breast cancer. Risk Values: Fartun 5 year model risk: 1.8%. NCI Lifetime model risk: 6.9%. Prior Study Comparison: 07/14/2018 Bilateral Screening Mammogram, [facility]. 09/18/2019 Bilateral Screening Mammogram, [facility]. 03/08/2021 Bilateral Screening Mammogram, [facility]. Tissue Density: The breast tissue is heterogeneously dense. This may lower the sensitivity of mammography. Findings: Analyzed By CAD. There is no suspicious group of microcalcifications or new suspicious mass in either breast. Benign calcifications noted. Overall Assessment: Benign, BI-RAD 2 Management: Screening Mammogram of both breasts in 1 year. A clinical breast exam by your physician is recommended on an annual basis and results should be correlated with mammographic findings. Electronically signed and approved by: Narinder Saxena M.D. Radiologis
== END | disposition home or self-care (01) ==
LOC: RADMAMWWP 08:41
PROVIDERS: ATTEND Family Medicine
DX: Z12.31 Encounter for screening mammogram for malignant neoplasm of breast (principal); Z78.0 Asymptomatic menopausal state; Z80.3 Family history of malignant neoplasm of breast
CPT/HCPCS: 77063; 77067

== ENCOUNTER → 2023-04-17 | Outpatient (CLI) | payer MEDICARE ==
--- NOTE | 2023-04-18 07:27 | MM ---
Reason for Exam: Screening (asymptomatic). Last screening mammogram was performed 12 month(s) ago. Patient History: Menarche at age 14. First Full-Term at age 27. Postmenopausal. Patient has history of breast feeding. Hormonal Contraceptives for 6 months. Paternal grandmother had breast cancer, age 50. Risk Values: Fartun 5 year model risk: 1.9%. NCI Lifetime model risk: 6.7%. Prior Study Comparison: 09/18/2019 Bilateral Screening Mammogram, [facility]. 03/08/2021 Bilateral Screening Mammogram, [facility]. 04/09/2022 Bilateral MG 3D screening mammo w/cad, [facility]. Tissue Density: The breast tissue is heterogeneously dense. This may lower the sensitivity of mammography. Findings: Analyzed By CAD. There is no suspicious group of microcalcifications or new suspicious mass in either breast. Overall Assessment: Negative, BI-RAD 1 Management: Screening Mammogram of both breasts in 1 year. A clinical breast exam by your physician is recommended on an annual basis and results should be correlated with mammographic findings. Note on Fartun scores and lifetime risk: 1. A Fartun score greater than 3% is considered moderate risk. If this is the case, consider specialist referral to assess eligibility for a risk reducing agent. If overall lifetime risk for the development of breast cancer is 20% or higher, the patient may qualify for future screening with alternating mammogram and breast MRI. Electronically signed and approved by: Tapan Reyes D.O.
== END | disposition home or self-care (01) ==
LOC: RADMAMWWP 16:53
PROVIDERS: ATTEND Family Medicine
DX: Z12.31 Encounter for screening mammogram for malignant neoplasm of breast (principal); Z78.0 Asymptomatic menopausal state; Z80.3 Family history of malignant neoplasm of breast
CPT/HCPCS: 77063; 77067

== ENCOUNTER → 2024-06-03 | Outpatient (CLI) | payer MEDICARE ==
--- NOTE | 2024-06-24 12:44 | MM ---
Reason for Exam: Screening (asymptomatic). Last mammogram was performed 1 year(s) and 2 month(s) ago. Patient History: Menarche at age 14. First Full-Term at age 27. Postmenopausal. Patient has history of breast feeding. Hormonal Contraceptives for 6 months. Paternal grandmother had breast cancer, age 50. Risk Values: Fartun 5 year model risk: 1.9%. NCI Lifetime model risk: 6.4%. Prior Study Comparison: 07/01/2017 Bilateral Screening Mammogram, [facility]. 07/14/2018 Bilateral Screening Mammogram, [facility]. 09/18/2019 Bilateral Screening Mammogram, [facility]. 03/08/2021 Bilateral Screening Mammogram, [facility]. 04/09/2022 Bilateral MG 3D screening mammo w/cad, [facility]. 04/17/2023 Bilateral MG 3D screening mammo w/cad, [facility]. Tissue Density: The breasts are heterogeneously dense, which may obscure small masses. Findings: Analyzed By CAD. Right breast: There is no suspicious group of microcalcifications or new suspicious mass. Left breast: There is no suspicious group of microcalcifications or new suspicious mass. Overall Assessment: Negative, BI-RAD 1 Management: Screening Mammogram of both breasts in [address] [facility] will attempt to contact patient to return for supplemental views and ultrasound if indicated. Patient should continue monthly self-breast exams. A clinical breast exam by your physician is recommended on an annual basis. This exam should not preclude additional follow-up of suspicious palpable abnormalities. Note on Fartun scores and lifetime risk: 1. A Fartun score greater than 3% is considered moderate risk. If this is the case, consider specialist referral to assess eligibility for a risk reducing agent. 2. If overall lifetime risk for the development of breast cancer is 20% or higher, the patient may qualify for future screening with alternating mammogram and breast MRI. Electronically signed and approved by: Aleksey Castillo DO
== END | disposition home or self-care (01) ==
LOC: RADMAMWWP 12:00
PROVIDERS: ATTEND Family Medicine
DX: Z12.31 Encounter for screening mammogram for malignant neoplasm of breast
CPT/HCPCS: 77063; 77067